=== PATIENT | female | born 1995 | race Caucasian/White ===

== ENCOUNTER → 2016-10-07 | Outpatient (CLI) | payer OTHER ==
--- NOTE | 2016-10-07 18:05 | US ---
EXAMINATION TYPE: US OB anatomy transabd DATE OF EXAM: 10/07/2016 COMPARISON: NONE HISTORY: Z36 Confirm Dates/ Check Anatomy; Occasional smoker; TECHNIQUE: Transabdominal (TA) EXAM MEASUREMENTS: GESTATIONAL AGE / DATING Physician Established: not established LMP: questionable 04/12/2016 per order, patient states unknown LMP First Scan today: Dates by Current Scan for: (20 weeks/6 days) EDC: 02/18/2017 SURVEY IUP: Single PLACENTA: Posterior PREVIA: No previa SAMINA: 14.2 cm Normal CERVICAL LENGTH (transabdominal: norm > 3.0cm): 3.9 cm BIOMETRY PRESENTATION: Breech LIE: Oblique BPD: 5.0 cm 21 weeks / 1 day HC: 19.0 cm 21 weeks / 1 day AC: 16.5 cm 21 weeks / 4 days FL: 3.5 cm 21 weeks / 0 days ESTIMATED WEIGHT IN GRAMS: 411.3 grams ESTIMATED WEIGHT IN LBS/OZ: 0 lbs. 15 oz. WEIGHT PERCENTAGE BASED ON ESTABLISHED DATE: NA HC/AC: 1.15 Normal FL/AC: 20.97 Normal HEART RATE: 126 bpm RHYTHM: Normal ANATOMY SEEN (within normal limits): * Lateral Vent (< 1 cm) 0.7 cm * Cisterna Magna (< 1.1 cm) 0.5 cm * Nuchal Fold (< 0.6 cm) 0.4 cm * Cerebellum (varies with age) 2.2 cm Choroid Plexus (bilateral) Midline Falx Cavus Septi Pellucidi Four Chamber Heart Outflow tracts: LVOT Stomach Situs Diaphragm Kidneys (bilateral) Bladder Cord Insert Three Vessel Cord Longitudinal Spine Transverse Spine Arms (bilateral) Legs (bilateral) ANATOMY NOT SEEN: RVOT Nose / Lips MATERNAL WALL MEASUREMENT: 6.2 cm from skin to anterior uterine wall (if exam limited due to body godoy bitus). Single, live, IUP,20 weeks/6 days), EDC: 02/18/2017, HR 126bpm IMPRESSION: The ultrasound gestational age is 20 weeks 6 days. I see no complicating process.
== END | disposition home or self-care (01) ==
LOC: RADUSWWP 16:32
PROVIDERS: ATTEND Obstetrics & Gynecology
DX: Z34.92 Encounter for supervision of normal pregnancy, unspecified, second trimester (principal); Z3A.20 20 weeks gestation of pregnancy
CPT/HCPCS: 76811

== ENCOUNTER → 2016-12-01 | Outpatient (CLI) | payer OTHER ==
--- NOTE | 2016-12-01 16:20 | US ---
EXAMINATION TYPE: US OB >= 14 wk fetus DATE OF EXAM: 12/01/2016 COMPARISON: US CLINICAL HISTORY: Z34.90 supervision of normal , uns For growth, pt has no complaints at thi s time TECHNIQUE: Transabdominal (TA) GESTATIONAL AGE / DATING Physician Established: (28 weeks/5 days) EDC: 02/18/2017 Dates by LMP: Unknown Dates by First Scan: (28 weeks/5 days) EDC: 02/18/2017 Dates by Current Scan: (29 weeks/4 days) EDC: 02/12/2017 SURVEY IUP: Single PLACENTA: Posterior PREVIA: No Previa SAMINA: 13.7 cm Normal CERVICAL LENGTH (transabdominal: norm > 3.0cm): 3.3 cm BIOMETRY PRESENTATION: Vertex BPD: 7.5 cm 30 weeks / 1 days HC: 27.6 cm 30 weeks / 2 days AC: 24.5 cm 28 weeks / 6 days FL: 5.4 cm 28 weeks / 5 days ESTIMATED WEIGHT IN GRAMS: 1306 grams ESTIMATED WEIGHT IN LBS/OZ: 2 lbs. 14 oz. WEIGHT PERCENTAGE BASED ON ESTABLISHED DATES: 45% HC/AC: 1.13 Normal FL/AC: 22 Normal HEART RATE: 142 bpm RHYTHM: Normal Single, viable IUP/ Growth parameters in 45th percentile/ No abnormality seen at this time IMPRESSION: 1. Single intrauterine gestation estimated at 29 weeks 4 days gestation based on current ultrasound m easurements. This would've a calculated EDC of 02/12/2017. Cardiac activity measures 142 bpm.
== END | disposition home or self-care (01) ==
LOC: RADUSWWP 13:02
PROVIDERS: ATTEND Obstetrics & Gynecology
DX: Z34.93 Encounter for supervision of normal pregnancy, unspecified, third trimester (principal); Z3A.29 29 weeks gestation of pregnancy
CPT/HCPCS: 76805

== ENCOUNTER 2017-06-01 17:03 | Inpatient (IN) | payer OTHER ==
[2017-06-01] MEDS ORDERED: ONDANSETRON 4 MG/2 ML VIAL IVP STA (17:45)
[2017-06-01] MEDS ORDERED: KETOROLAC 30 MG/ML 1 ML VIAL IVP STA (17:45)
[2017-06-01] MEDS ORDERED: SODIUM CHLORIDE 0.9% 1,000 ML IV STA (17:45)
[2017-06-01 18:29] LABS: Basophils % (A) 0 %; Eosinophils # (A) 0.2 k/uL (0-0.7); Eosinophils % (A) 2 %; HCT 41.1 % (34.0-46.0); HGB 13.6 gm/dL (11.4-16.0); Lymphocytes # (A) 1.5 k/uL (1.0-4.8); Lymphocytes % (A) 13 %; MCH 26.3 pg (25.0-35.0); MCV 79.6 fL (80.0-100.0); Mean Platelet Volume 6.6; Monocytes # (A) 0.4 k/uL (0-1.0); Monocytes % (A) 4 %; Neutrophils # (A) 9.1 k/uL (1.3-7.7); Neutrophils % (A) 79 %; Platelet Count 452 k/uL (150-450); RBC 5.16 m/uL (3.80-5.40); WBC 11.4 k/uL (4.0-11.0)
[2017-06-01 18:32] LABS: Appearance,Urine Cloudy (Clear); Bilirubin,Urine Negative (Negative); Blood,Urine Moderate (Negative); Color,Urine Yellow; Glucose,Urine (UA) Negative (Negative); Ketones,Urine Negative (Negative); Leukocyte Esterase,Urine Trace (Negative); Mucus,Urine Few /hpf; Nitrite,Urine Negative (Negative); Protein,Urine Trace (Negative); RBC,Urine 2 /hpf (0-5); Specific Gravity,Urine 1.019 (1.001-1.035); Squamous Epithelial Cell,Urine 25 /hpf (0-4); Urobilinogen,Urine <2.0 mg/dL (<2.0); WBC,Urine 5 /hpf (0-5)
[2017-06-01 18:42] LABS: ALT 35 U/L (9-52); AST 62 U/L (14-36); Albumin 4.5 g/dL (3.5-5.0); Alkaline Phosphatase 153 U/L (38-126); Amylase 63 U/L (30-110); Anion Gap 15 mmol/L; Blood Urea Nitrogen 10 mg/dL (7-17); Calcium 9.8 mg/dL (8.4-10.2); Carbon Dioxide 25 mmol/L (22-30); Chloride 104 mmol/L (98-107); Glucose 101 mg/dL (74-99); Lipase 63 U/L (23-300); Potassium 4.1 mmol/L (3.5-5.1); Sodium 144 mmol/L (137-145); Total Bilirubin 0.5 mg/dL (0.2-1.3); Total Protein 7.6 g/dL (6.3-8.2)
--- NOTE | 2017-06-01 19:37 | XR ---
EXAMINATION TYPE: XR KUB DATE OF EXAM: 06/01/2017 COMPARISON: NONE INDICATION: Abdomen pain right flank pain TECHNIQUE: Single view abdomen upright view FINDINGS: Minimal bowel gas is present. No free air is evident. No differential air-fluid levels are present. N o mass effect is evident. Psoas margins are normal. No organomegaly is present. No suspicious calcifications are identified. IMPRESSION: 1. Nonspecific abdomen.
--- NOTE | 2017-06-01 19:37 | ED ---
Abdominal Pain HPI <Lennox Malone - Last Filed: 06/01/17 21:19> - General Source: patient Mode of arrival: ambulatory Limitations: no limitations <Sola Crockett - Last Filed: 06/01/17 22:06> - General Chief Complaint: Abdominal Pain Stated Complaint: BACK AND RIB PAIN, NAUSEA Time Seen by Provider: 06/01/17 17:14 - History of Present Illness Initial Comments: 21-year-old female patient presents to the emergency department today for complaints of right upper quadrant abdominal pain radiates into her back. Patient states that this has been going on a mainly for the last month however last evening the pain became worse. Patient states that is been worsening consistently since 5:00 this morning. States that she has had multiple episodes of vomiting and is unable to keep down any food or fluids. She describes the pain as a sharp, achy pain that is intense. She denies any fevers or chills with this. Denies any diarrhea or constipation. Denies any hematuria, dysuria, urinary frequency, urinary urgency. She denies any chance of . States that she does take oral control. Patient denies any recent rash, shortness breath, chest pain, numbness, tingling, dizziness, weakness, headache, visual changes, or any other complaints. (Sola Crockett) - Related Data Home Medications Medication Instructions Recorded Confirmed Ibuprofen [Advil] 400 mg PO Q8HR PRN 06/01/17 06/01/17 [place]-Linyah 1 tab PO HS 06/01/17 06/01/17 Sertraline [Zoloft] 50 mg PO HS 06/01/17 06/01/17 Allergies Allergy/AdvReac Type Severity Reaction Status Date / Time No Known Allergies Allergy Verified 06/01/17 18:42 Review of Systems ROS Other: All systems not noted in ROS Statement are negative. <Lennox Malone - Last Filed: 06/01/17 21:19> ROS Other: All systems not noted in ROS Statement are negative. <Sola Crockett - Last Filed: 06/01/17 22:06> ROS Statement: Those systems with pertinent positive or pertinent negative responses have been documented in the HPI. Past Medical History Past Medical History: No Reported History History of Any Multi-Drug Resistant Organisms: None Reported Past Surgical History: Section, Tonsillectomy Past Psychological History: No Psychological Hx Reported Smoking Status: Current every day smoker Past Alcohol Use History: None Reported Past Drug Use History: Marijuana <Sola Crockett - Last Filed: 06/01/17 22:06> General Exam Limitations: no limitations General appearance: alert, in no apparent distress, other (This is a well- developed, obese adult female patient in no acute distress. Vital signs upon presentation are temperature 97.8F, pulse 96, respirations 20, blood pressure 140/89, pulse ox 97% on room air.) Eye exam: Present: normal appearance, PERRL, EOMI. Absent: scleral icterus, conjunctival injection, periorbital swelling ENT exam: Present: normal exam, normal oropharynx, mucous membranes moist Respiratory exam: Present: normal lung sounds bilaterally. Absent: respiratory distress, wheezes, rales, rhonchi, stridor Cardiovascular Exam: Present: regular rate, normal rhythm, normal heart sounds. Absent: systolic murmur, diastolic murmur, rubs, gallop, clicks GI/Abdominal exam: Present: soft, tenderness (Midepigastric and right upper quadrant abdominal tenderness), normal bowel sounds. Absent: distended, guarding, rebound, rigid Neurological exam: Present: alert, oriented X3, CN II-XII intact Psychiatric exam: Present: normal affect, normal mood Skin exam: Present: warm, dry, intact, normal color. Absent: rash <Sola Crockett - Last Filed: 06/01/17 22:06> Course <Lennox Malone - Last Filed: 06/01/17 21:19> <Sola Crockett - Last Filed: 06/01/17 22:06> Vital Signs 06/01/17 06/01/17 06/01/17 17:06 20:28 21:49 Temperature 97.8 F 98.2 F 97.6 F Pulse Rate 96 70 66 Respiratory 20 18 18 Rate Blood Pressure 148/89 128/71 110/65 O2 Sat by Pulse 97 100 98 Oximetry - Reevaluation(s) Reevaluation #1: 06/01/17 21:19 I did proceed a [id number] evaluation patient did discuss findings with her and her family. I also did discuss the case with Dr. Jimenez who does cover Dr. Mayra Jimenez patient will be admitted with surgical and GI consultation. There is evidence of gallstones second gallbladder wall and common bile duct dilatation. The patient also states that every member of her family dentist female that has had a child has had her gallbladder removed. (Lennox Malone) Medical Decision Making - Lab Data Result diagrams: 06/01/17 16:15 06/01/17 16:15 <Lennox Malone - Last Filed: 06/01/17 21:19> - Lab Data Result diagrams: 06/01/17 16:15 06/01/17 16:15 - Radiology Data Radiology results: report reviewed, image reviewed <Sola Crockett - Last Filed: 06/01/17 22:06> - Medical Decision Making 21-year-old female patient presents to the emergency department today for evaluation of right upper quadrant pain that radiates into her back. Physical examination did reveal some mild midepigastric and right upper quadrant tenderness. Labs reviewed and did show an elevated white blood cell count at 11.4. AST is 62, alk phos is 153. Ultrasound of the abdomen was obtained and did show a thickened gallbladder wall with a possible stone in the common bile duct. Also recommended to correlate for cholecystitis. Given patient's symptoms, labs, and ultrasound findings will admit for further evaluation by surgical services and gastroenterology. We will start zosyn. IV fluids and pain managment will be provided. Dr. Jimenez is accepting. (Sola Crockett) - Lab Data Lab Results 06/01/17 06/01/17 06/01/17 Range/Units 16:15 16:15 16:15 WBC 11.4 H (4.0-11.0) k/uL RBC 5.16 (3.80-5.40) m/uL Hgb 13.6 (11.4-16.0) gm/dL Hct 41.1 (34.0-46.0) % MCV 79.6 L (80.0-100.0) fL MCH 26.3 (25.0-35.0) pg MCHC 33.0 (31.0-37.0) g/dL RDW 14.0 (11.5-15.5) % Plt Count 452 H (150-450) k/uL Neutrophils % 79 % Lymphocytes % 13 % Monocytes % 4 % Eosinophils % 2 % Basophils % 0 % Neutrophils # 9.1 H (1.3-7.7) k/uL Lymphocytes # 1.5 (1.0-4.8) k/uL Monocytes # 0.4 (0-1.0) k/uL Eosinophils # 0.2 (0-0.7) k/uL Basophils # 0.0 (0-0.2) k/uL Sodium 144 (137-145) mmol/L Potassium 4.1 (3.5-5.1) mmol/L Chloride 104 (98-107) mmol/L Carbon Dioxide 25 (22-30) mmol/L Anion Gap 15 mmol/L BUN 10 (7-17) mg/dL Creatinine 0.72 (0.52-1.04) mg/dL Est GFR (CKD-EPI)AfAm >90 (>60 ml/min/1.73 sqM) Est GFR (CKD-EPI)NonAf >90 (>60 ml/min/1.73 sqM) Glucose 101 H (74-99) mg/dL Calcium 9.8 (8.4-10.2) mg/dL Total Bilirubin 0.5 (0.2-1.3) mg/dL AST 62 H (14-36) U/L ALT 35 (9-52) U/L Alkaline Phosphatase 153 H (38-126) U/L Total Protein 7.6 (6.3-8.2) g/dL Albumin 4.5 (3.5-5.0) g/dL Amylase 63 (30-110) U/L Lipase 63 (23-300) U/L Urine Color Urine Appearance (Clear) Urine pH (5.0-8.0) Ur Specific Matthews (1.001-1.035) Urine Protein (Negative) Urine Glucose (UA) (Negative) Urine Ketones (Negative) Urine Blood (Negative) Urine Nitrite (Negative) Urine Bilirubin (Negative) Urine Urobilinogen (<2.0) mg/dL Ur Leukocyte Esterase (Negative) Urine RBC (0-5) /hpf Urine WBC (0-5) /hpf Ur Squamous Epith Cells (0-4) /hpf Urine Mucus (None) /hpf Urine HCG, Qual Not Detected (Not Detectd) 06/01/17 Range/Units 16:15 WBC (4.0-11.0) k/uL RBC (3.80-5.40) m/uL Hgb (11.4-16.0) gm/dL Hct (34.0-46.0) % MCV (80.0-100.0) fL MCH (25.0-35.0) pg MCHC (31.0-37.0) g/dL RDW (11.5-15.5) % Plt Count (150-450) k/uL Neutrophils % % Lymphocytes % % Monocytes % % Eosinophils % % Basophils % % Neutrophils # (1.3-7.7) k/uL Lymphocytes # (1.0-4.8) k/uL Monocytes # (0-1.0) k/uL Eosinophils # (0-0.7) k/uL Basophils # (0-0.2) k/uL Sodium (137-145) mmol/L Potassium (3.5-5.1) mmol/L Chloride (98-107) mmol/L Carbon Dioxide (22-30) mmol/L Anion Gap mmol/L BUN (7-17) mg/dL Creatinine (0.52-1.04) mg/dL Est GFR (CKD-EPI)AfAm (>60 ml/min/1.73 sqM) Est GFR (CKD-EPI)NonAf (>60 ml/min/1.73 sqM) Glucose (74-99) mg/dL Calcium (8.4-10.2) mg/dL Total Bilirubin (0.2-1.3) mg/dL AST (14-36) U/L ALT (9-52) U/L Alkaline Phosphatase (38-126) U/L Total Protein (6.3-8.2) g/dL Albumin (3.5-5.0) g/dL Amylase (30-110) U/L Lipase (23-300) U/L Urine Color Yellow Urine Appearance Cloudy H (Clear) Urine pH 6.0 (5.0-8.0) Ur Specific Matthews 1.019 (1.001-1.035) Urine Protein Trace H (Negative) Urine Glucose (UA) Negative (Negative) Urine Ketones Negative (Negative) Urine Blood Moderate H (Negative) Urine Nitrite Negative (Negative) Urine Bilirubin Negative (Negative) Urine Urobilinogen <2.0 (<2.0) mg/dL Ur Leukocyte Esterase Trace H (Negative) Urine RBC 2 (0-5) /hpf Urine WBC 5 (0-5) /hpf Ur Squamous Epith Cells 25 H (0-4) /hpf Urine Mucus Few H (None) /hpf Urine HCG, Qual (Not Detectd) - Radiology Data Ultrasound of the abdomen was obtained, impression by Dr. Linares shows gallstone within the gallbladder. Correlate for cholecystitis. Common bile duct is dilated and appears to contain a stone within the duct. Two-view x-ray of the abdomen shows normal bowel gas is present. No free air is evident. No differential air fluid levels are present. No mass effect is evident. Psoas margins are normal. No organomegaly is present. No suspicious calcifications are identified. Impression by Dr. Linares shows nonspecific abdomen. (Sola Crockett) Disposition <Lennox Malone - Last Filed: 06/01/17 21:19> Is patient prescribed a controlled substance at d/c from ED?: No Decision to Admit Reason: Admit from EC Decision Date: 06/01/17 Decision Time: 21:34 <Sola Crockett - Last Filed: 06/01/17 22:06> Clinical Impression: Choledocholithiasis with acute cholecystitis Disposition: ADMITTED IP TO THIS [facility] Condition: Serious
--- NOTE | 2017-06-01 20:46 | US ---
EXAMINATION TYPE: US abdomen limited DATE OF EXAM: 06/01/2017 COMPARISON: NONE CLINICAL HISTORY: Pain. RUQ pain and vomiting. EXAM MEASUREMENTS: Liver Length: 20 cm Gallbladder Wall: 0.3 cm CBD: 0.9 cm Right Kidney: 13.0 x 3.8 x 4.9 cm Pancreas: Obscured by bowel gas Liver: Increased attenuation Gallbladder: Multiple stones visualized QUINN sign wall thickened. Evidence for sonographic Kauffman's sign: No CBD: Dilated and appears to be a stone visualized in duct. Right Kidney: No hydronephrosis or masses seen IMPRESSION: Gallstone within the gallbladder. Correlate for cholecystitis. The common bile duct is di lated and appears to contain a stone within the duct.
[2017-06-01] MEDS ORDERED: NALOXONE 0.4 MG/ML 1 ML VIAL IV PRN (21:12)
[2017-06-01] MEDS ORDERED: PIPERACILLIN-TAZOBACTAM 3.375 GM in DEXTROSE/WATER 1 50ML.BAG IVPB STA (21:37)
[2017-06-01] MEDS: SODIUM CHLORIDE 0.9% 1,000 ML IV SCH (22:16)
[2017-06-01] MEDS ORDERED: ALPRAZolam 0.25 MG TAB PO PRN (22:52)
--- NOTE | 2017-06-01 23:46 | HP ---
HISTORY AND PHYSICAL DATE OF SERVICE: 06/01/2017 CHIEF COMPLAINT: Abdominal pain. HISTORY OF PRESENT ILLNESS: This 21-year-old woman with a past medical history of section, tonsillectomy, being followed by Dr. Enid Jeffers in the outpatient setting, complaining of abdominal pain for the last several days. The pain is in the right upper quadrant. Abdominal pain is radiating to the back and the pain got worse last night. The patient came to [facility] and admitted for further evaluation and treatment. In the ER, an abdominal ultrasound was done which showed evidence of gallstones and cholecystitis and patient admitted for further evaluation and treatment. There is no history of fever, rigors. No history of headache, loss of consciousness. White count is also elevated. UA also noted. PAST MEDICAL HISTORY: History of section, tonsillectomy. MEDICATIONS PRIOR TO ADMISSION: Include: 1. Dodge-Linyah. 2. Zoloft 50 mg q.h.s. 3. Advil 400 mg q.89h p.r.n. ALLERGIES: None. SOCIAL HISTORY: History of smoking, THC. FAMILY HISTORY: No history of heart disease or strokes in the family. REVIEW OF SYSTEMS: ENT: No diminished hearing, diminished vision. CARDIOVASCULAR: No angina, palpitations. RESPIRATORY: No cough or hemoptysis. GI: As mentioned earlier. : No dysuria. NERVOUS: No numbness or weakness. ALLERGY/IMMUNOLOGY: No asthma or hay fever. MUSCULOSKELETAL: As mentioned earlier. HEMATOLOGY/ONCOLOGY: No history of anemia. ENDOCRINE: No history of diabetes, hypothyroidism. CONSTITUTIONAL: As mentioned earlier. DERMATOLOGY: Negative. RHEUMATOLOGY: Negative. PSYCHIATRY: As mentioned earlier. PHYSICAL EXAMINATION: Alert oriented x3. Pulse is 66, blood pressure 120/64, respirations 18, temperature 98.6, pulse ox 98% on room air. HEENT: Conjunctivae normal. NECK: No jugular venous distention. CARDIOVASCULAR: S1, S2 muffled. RESPIRATORY: Breath sounds diminished in the bases. No rhonchi. No crackles. ABDOMEN: Soft. Mild diffuse tenderness in the right upper quadrant and otherwise abdomen obese and no mass palpable. LEGS: No edema. No swelling. NERVOUS SYSTEM: Higher functions as mentioned earlier. Moves all 4 limbs. No focal motor or sensory deficits. LYMPHATIC: No lymphadenopathy in neck or axillae. SKIN: No ulcer, rash or bleeding. LABS: WBC 7.4, hemoglobin 13.6. Sodium 142, potassium 4.1. UA noted. ASSESSMENT: 1. Right upper quadrant abdominal pain, possible acute cholecystitis and cholelithiasis. 2. Increased WBC. 3. Obesity. 4. Increased AST. 5. Increase alkaline phosphatase. RECOMMENDATIONS AND DISCUSSION: In this 21-year-old woman who presented with multiple complex medical issues, will monitor the patient closely, continue the current medical management and symptomatic treatment. Will obtain neck surgery and gastroenterology evaluations. Otherwise, I would also recommend DVT prophylaxis, symptomatic treatment. Antibiotics also have been initiated. Will follow the patient closely. Would also recommend proton pump inhibitors. Prognosis guarded because of multiple complex medical issues. Further further recommendations to follow. MMODL / IJN: [id number] /
[2017-06-02] MEDS: MORPHINE SULFATE 4MG/4ML SYRG IVP SCH ×4 (00:05→10:35)
[2017-06-02] MEDS: HEPARIN SODIUM,PORCINE 5,000 UNIT/ML 1 ML VIAL SQ SCH ×3 (01:24→20:22)
[2017-06-02] MEDS: ONDANSETRON 4 MG/2 ML VIAL IVP PRN ×2 (06:54→14:13)
[2017-06-02 07:00] LABS: Basophils % (A) 0 %; Eosinophils # (A) 0.3 k/uL (0-0.7); Eosinophils % (A) 2 %; HCT 38.8 % (34.0-46.0); HGB 12.1 gm/dL (11.4-16.0); Lymphocytes # (A) 2.9 k/uL (1.0-4.8); Lymphocytes % (A) 26 %; MCH 25.4 pg (25.0-35.0); MCHC 31.3 g/dL (31.0-37.0); Mean Platelet Volume 7.2; Monocytes # (A) 0.5 k/uL (0-1.0); Monocytes % (A) 5 %; Neutrophils # (A) 7.2 k/uL (1.3-7.7); Neutrophils % (A) 65 %; Platelet Count 390 k/uL (150-450); RBC 4.79 m/uL (3.80-5.40); RDW 14.6 % (11.5-15.5)
[2017-06-02 07:42] LABS: ALT 53 U/L (9-52); AST 76 U/L (14-36); Albumin 4.1 g/dL (3.5-5.0); Alkaline Phosphatase 152 U/L (38-126); Anion Gap 14 mmol/L; Blood Urea Nitrogen 10 mg/dL (7-17); Calcium 9.2 mg/dL (8.4-10.2); Carbon Dioxide 22 mmol/L (22-30); Chloride 106 mmol/L (98-107); Glucose 89 mg/dL (74-99); Potassium 3.7 mmol/L (3.5-5.1); Sodium 142 mmol/L (137-145); Total Bilirubin 0.8 mg/dL (0.2-1.3); Total Protein 6.9 g/dL (6.3-8.2)
[2017-06-02] MEDS: NICOTINE 14MG/24HR PATCH TRANSDERM SCH (09:16)
[2017-06-02] MEDS: PANTOPRAZOLE 40 MG/10 ML VIAL IVP SCH (09:18)
[2017-06-02] MEDS: PIPERACILLIN-TAZOBACTAM 3.375 GM in DEXTROSE/WATER 1 50ML.BAG IVPB SCH ×3 (09:18→23:26)
--- NOTE | 2017-06-02 10:07 | P.GSCN ---
History of Present Illness Consult date: 06/02/17 Reason for Consult: Right upper quadrant pain History of present illness: A 21-year-old female presented on the day of admission to the emergency room with a chief complaint of developing right upper quadrant abdominal pain radiating into the back. Patient stated that she has had intermittent episodes for the last month. stated it normally resolved on its own. Stated the pain this time symptomatic. felt nauseated did vomit. not able to keep any fluids down. Patient stated the pain was a sharp achy stabbing pain that was very intense. Patient states a positive family history of gallbladder disease. Past surgical history of in February 2017 tonsillectomy no past medical history ultrasound obtained in the emergency room showed thickening gallbladder possible stone in the common bile duct. Dilated common bile duct appeared to have a stone in the duct Correlate for possible cholecystitis. Review of Systems Essentially unremarkable except as mentioned in the present illness Past Medical History Past Medical History: No Reported History History of Any Multi-Drug Resistant Organisms: None Reported Past Surgical History: Section, Tonsillectomy Past Anesthesia/Blood Transfusion Reactions: No Reported Reaction Past Psychological History: Anxiety, Depression, PTSD Additional Psychological History / Comment(s): Marijuana helps with anxiety and depression. Did try Zoloft for a period of time, but did not agree with patient. Smoking Status: Current some day smoker Past Alcohol Use History: None Reported Past Drug Use History: Marijuana - Past Family History Mother Family Medical History: Hypertension Additional Family Medical History / Comment(s): Gall bladder surgery Sister(s) Additional Family Medical History / Comment(s): Gall bladder surgery Father History Unknown: Yes Son(s) Family Medical History: No Reported History Medications and Allergies Home Medications Medication Instructions Recorded Confirmed Type Ibuprofen [Advil] 400 mg PO Q8HR PRN 06/01/17 06/01/17 History [place]nn-Linyah 1 tab PO HS 06/01/17 06/01/17 History Sertraline [Zoloft] 50 mg PO HS 06/01/17 06/01/17 History Allergies Allergy/AdvReac Type Severity Reaction Status Date / Time No Known Allergies Allergy Verified 06/01/17 18:42 Surgical - Exam Vital Signs Temp Pulse Resp BP Pulse Ox 97.8 F 96 20 148/89 97 06/01/17 17:06 06/01/17 17:06 06/01/17 17:06 06/01/17 17:06 06/01/17 17:06 GENERAL APPEARANCE: 21-year-old female patient sitting up in bed alert, oriented 3, in no acute distress. VITAL SIGNS: Reviewed HEENT: Head is normocephalic and atraumatic. Pupils are equal and reactive. The nares are patent. Oropharynx is clear without lesions. NECK: Supple without lymphadenopathy. Traches midline. HEART: S1, S2. Regular rate and rhythm. Denying chest pain no murmur noted LUNGS: No crackles or wheezes are heard. Adequate air movement bilaterally on room air no cough ABDOMEN: Soft, obese mid epigastric right upper quadrant abdominal tenderness nondistended with good bowel sounds. No peritoneal signs. No palpable organomegaly or masses. Reports a nausea sensation no active emesis EXTREMITIES: Normal skin color and turgor. No cyanosis, rash, ulceration, clubbing or edema. Radial pedal pulses are 2/4 bilaterally. NEUROLOGICAL: No focal deficits. Strength and sensation are grossly intact. Results - Labs 06/02/17 06:36 06/02/17 06:36 Abnormal Lab Results - Last 24 Hours (Table) 06/01/17 06/01/17 06/01/17 Range/Units 16:15 16:15 16:15 WBC 11.4 H (4.0-11.0) k/uL MCV 79.6 L (80.0-100.0) fL Plt Count 452 H (150-450) k/uL Neutrophils # 9.1 H (1.3-7.7) k/uL Glucose 101 H (74-99) mg/dL AST 62 H (14-36) U/L ALT (9-52) U/L Alkaline Phosphatase 153 H (38-126) U/L Urine Appearance Cloudy H (Clear) Urine Protein Trace H (Negative) Urine Blood Moderate H (Negative) Ur Leukocyte Esterase Trace H (Negative) Ur Squamous Epith Cells 25 H (0-4) /hpf Urine Mucus Few H (None) /hpf 06/02/17 Range/Units 06:36 WBC (4.0-11.0) k/uL MCV (80.0-100.0) fL Plt Count (150-450) k/uL Neutrophils # (1.3-7.7) k/uL Glucose (74-99) mg/dL AST 76 H (14-36) U/L ALT 53 H (9-52) U/L Alkaline Phosphatase 152 H (38-126) U/L Urine Appearance (Clear) Urine Protein (Negative) Urine Blood (Negative) Ur Leukocyte Esterase (Negative) Ur Squamous Epith Cells (0-4) /hpf Urine Mucus (None) /hpf Diabetes panel 06/01/17 06/02/17 Range/Units 16:15 06:36 Sodium 144 142 (137-145) mmol/L Potassium 4.1 3.7 (3.5-5.1) mmol/L Chloride 104 106 (98-107) mmol/L Carbon Dioxide 25 22 (22-30) mmol/L BUN 10 10 (7-17) mg/dL Creatinine 0.72 0.81 (0.52-1.04) mg/dL Glucose 101 H 89 (74-99) mg/dL Calcium 9.8 9.2 (8.4-10.2) mg/dL AST 62 H 76 H (14-36) U/L ALT 35 53 H (9-52) U/L Alkaline Phosphatase 153 H 152 H (38-126) U/L Total Protein 7.6 6.9 (6.3-8.2) g/dL Albumin 4.5 4.1 (3.5-5.0) g/dL Calcium panel 06/01/17 06/02/17 Range/Units 16:15 06:36 Calcium 9.8 9.2 (8.4-10.2) mg/dL Albumin 4.5 4.1 (3.5-5.0) g/dL Pituitary panel 06/01/17 06/02/17 Range/Units 16:15 06:36 Sodium 144 142 (137-145) mmol/L Potassium 4.1 3.7 (3.5-5.1) mmol/L Chloride 104 106 (98-107) mmol/L Carbon Dioxide 25 22 (22-30) mmol/L BUN 10 10 (7-17) mg/dL Creatinine 0.72 0.81 (0.52-1.04) mg/dL Glucose 101 H 89 (74-99) mg/dL Calcium 9.8 9.2 (8.4-10.2) mg/dL Adrenal panel 04/19/18 04/20/18 Range/Units 16:15 06:36 Sodium 144 142 (137-145) mmol/L Potassium 4.1 3.7 (3.5-5.1) mmol/L Chloride 104 106 (98-107) mmol/L Carbon Dioxide 25 22 (22-30) mmol/L BUN 10 10 (7-17) mg/dL Creatinine 0.72 0.81 (0.52-1.04) mg/dL Glucose 101 H 89 (74-99) mg/dL Calcium 9.8 9.2 (8.4-10.2) mg/dL Total Bilirubin 0.5 0.8 (0.2-1.3) mg/dL AST 62 H 76 H (14-36) U/L ALT 35 53 H (9-52) U/L Alkaline Phosphatase 153 H 152 H (38-126) U/L Total Protein 7.6 6.9 (6.3-8.2) g/dL Albumin 4.5 4.1 (3.5-5.0) g/dL Assessment and Plan Assessment: Impression Present on admission right upper quadrant abdominal pain suspect due to acute cholelithiasis Morbid obesity BMI 52 A recent February 2017 Ultrasound of the gallbladder shows gallbladder wall thickening, common bile duct dilated with a stone within the duct Present on admission acute right upper quadrant abdominal pain suspect due to acute cholecystitis with cholelithiasis Current every day smoker Leukocytosis present on admission suspect reactive Present on admission increased alkaline phosphate, AST, ALT with a normal lipase 63 Plan Await GI eval possible ERCP for the cholelithiasis Continue IV Zosyn as ordered Keep nothing by mouth Pain control DVT and GI prophylaxis Patient will need a cholecystectomy timing to be determined after the ERCP Possible discharge after ERCP with the cholecystectomy to be arranged outpatient early next week with Dr. walls Repeat labs after the ERCP Surgical consultation note dictated for Dr. walls The above impression and plan of care have been discussed and directed by signing physician. Danielle Stapleton nurse practitioner acting as scribe for signing physician.
[2017-06-02] MEDS ORDERED: MORPHINE SULF 5MG/10ML VL IVP STA (10:13)
[2017-06-02] MEDS: SODIUM CHLORIDE 0.9% 1,000 ML IV SCH ×2 (10:37→20:19)
--- NOTE | 2017-06-02 13:47 | PN ---
PROGRESS NOTE DATE OF SERVICE: 06/02/2017 This 21-year-old woman is admitted with abdominal pain and possibly cholelithiasis and cholecystitis. ERCP is being planned at this time. Surgery has seen the patient and planning outpatient cholecystectomy. No chest pain. No palpitations. No fever. EXAM: Alert and oriented x3. Pulse 80, blood pressure 120/81, respiration 14, temperature 98.2, pulse ox 97% on room air. HEENT: Conjunctivae normal. NECK: No jugular venous distention. CARDIOVASCULAR: S1, S2. RESPIRATORY: Breath sounds diminished in the bases. No rhonchi, no crackles. ABDOMEN: Soft. Mild diffuse discomfort on palpation. No guarding. No rigidity. No mass palpable. LEGS: No edema. No swelling. NERVOUS SYSTEM: No focal deficits. LABS: WBC 7, hemoglobin 12.1. AST 76 and ALT is 53. ASSESSMENT: 1. Right upper quadrant abdominal pain, possibly acute cholecystitis and cholelithiasis. 2. Increased WBC. 3. Increased AST, ALT, alkaline phosphatase, rule out choledocholithiasis. 4. Increased WBC. 5. Obesity. RECOMMENDATIONS AND DISCUSSION: Continue current management and symptomatic treatment. Otherwise ERCP and outpatient lap cecile. Guarded prognosis. Further recommendations to follow. MMODL / IJN: [id number] /
[2017-06-02] MEDS: MORPHINE SULFATE 4 MG/0.8 ML SYRINGE (INJ) IVP SCH ×3 (14:13→23:26)
[2017-06-02] MEDS: SERTRALINE 50 MG TAB PO SCH (20:22)
[2017-06-03] MEDS: MORPHINE SULFATE 4 MG/0.8 ML SYRINGE (INJ) IVP SCH ×2 (02:19→06:18)
[2017-06-03] MEDS: SODIUM CHLORIDE 0.9% 1,000 ML IV SCH ×3 (06:18→18:50)
[2017-06-03] MEDS ORDERED: INDOMETHACIN 50MG SUPPOSITORY RECTAL ONE (07:00)
[2017-06-03 07:16] LABS: Basophils % (A) 1 %; Eosinophils # (A) 0.2 k/uL (0-0.7); Eosinophils % (A) 3 %; HCT 38.6 % (34.0-46.0); Lymphocytes # (A) 2.2 k/uL (1.0-4.8); Lymphocytes % (A) 30 %; MCH 25.6 pg (25.0-35.0); MCHC 31.2 g/dL (31.0-37.0); MCV 81.9 fL (80.0-100.0); Mean Platelet Volume 6.8; Monocytes # (A) 0.5 k/uL (0-1.0); Monocytes % (A) 6 %; Neutrophils # (A) 4.3 k/uL (1.3-7.7); Neutrophils % (A) 58 %; Platelet Count 397 k/uL (150-450); RBC 4.71 m/uL (3.80-5.40); RDW 14.2 % (11.5-15.5); WBC 7.5 k/uL (4.0-11.0)
[2017-06-03 07:29] LABS: Chloride 104 mmol/L (98-107); Sodium 143 mmol/L (137-145); Total Protein 6.7 g/dL (6.3-8.2)
[2017-06-03 07:43] LABS: ALT 155 U/L (9-52); AST 176 U/L (14-36); Albumin 3.8 g/dL (3.5-5.0); Alkaline Phosphatase 225 U/L (38-126); Anion Gap 15 mmol/L; Blood Urea Nitrogen 5 mg/dL (7-17); Calcium 9.3 mg/dL (8.4-10.2); Carbon Dioxide 24 mmol/L (22-30); Glucose 101 mg/dL (74-99); Potassium 3.6 mmol/L (3.5-5.1); Total Bilirubin 2.6 mg/dL (0.2-1.3)
[2017-06-03] MEDS ORDERED: MORPHINE SULFATE 4 MG/0.8 ML SYRINGE (INJ) IVP PRN (08:17)
[2017-06-03] MEDS ORDERED: IV FLUID CONTINUATION 800 ML IV ONE (08:21)
--- NOTE | 2017-06-03 08:27 | P.CONS ---
History of Present Illness - Reason for Consult Consult date: 06/02/17 Common bile duct stone for possible ERCP. - History of Present Illness The patient is a 21-year-old female who presented to the emergency room with right upper quadrant abdominal pain radiating into the back. Patient stated that she has had intermittent episodes for the last month. stated it normally resolved on its own. Stated the pain this time symptomatic. felt nauseated did vomit. Was not able to keep any fluids down. Patient stated the pain was a sharp achy stabbing pain that was very intense. Patient states a positive family history of gallbladder disease. Ultrasound obtained in the emergency room showed cholelithiasis with thickening of the gallbladder wall and dilated common bile duct with a stone in the duct, correlate for possible cholecystitis. Patient has a 3-month-old baby and she believes she had issues during her on and off with abdominal pains. Review of Systems 14 point review of systems is otherwise not revealing. Past Medical History Past Medical History: No Reported History History of Any Multi-Drug Resistant Organisms: None Reported Past Surgical History: Section, Tonsillectomy Past Anesthesia/Blood Transfusion Reactions: No Reported Reaction Past Psychological History: Anxiety, Depression, PTSD Additional Psychological History / Comment(s): Marijuana helps with anxiety and depression. Did try Zoloft for a period of time, but did not agree with patient. Smoking Status: Current some day smoker Past Alcohol Use History: None Reported Past Drug Use History: Marijuana - Past Family History Mother Family Medical History: Hypertension Additional Family Medical History / Comment(s): Gall bladder surgery Sister(s) Additional Family Medical History / Comment(s): Gall bladder surgery Father History Unknown: Yes Son(s) Family Medical History: No Reported History Medications and Allergies Home Medications Medication Instructions Recorded Confirmed Type Ibuprofen [Advil] 400 mg PO Q8HR PRN 06/01/17 06/01/17 History [place] 1 tab PO HS 06/01/17 06/01/17 History Sertraline [Zoloft] 50 mg PO HS 06/01/17 06/01/17 History Allergies Allergy/AdvReac Type Severity Reaction Status Date / Time No Known Allergies Allergy Verified 06/01/17 18:42 Physical Exam Vitals: Vital Signs Temp Pulse Pulse Resp BP BP Pulse Ox 06/02/17 16:19 97.9 F 75 20 126/79 95 06/02/17 09:15 97.5 F L 71 18 123/79 95 06/02/17 07:00 98.3 F 80 14 123/81 97 06/02/17 01:29 97.2 F L 72 16 112/71 99 06/01/17 22:27 98.0 F 69 16 108/62 98 06/01/17 21:49 97.6 F 66 18 110/65 98 06/01/17 20:28 98.2 F 70 18 128/71 100 Intake and Output 06/02/17 06/02/17 06/02/17 06:59 14:59 22:59 Intake Total 371 Balance 371 Intake: Intake, IV Titration 371 Amount Piperacillin-Tazobactam 3 50 .375 gm In Dextrose/Water 1 50ml.bag @ 12.5 mls/hr IVPB ONCE STA Rx#: [id number] Sodium Chloride 0.9% 1, 321 000 ml @ 100 mls/hr IV . Q10H [facility] Rx#:[id number] Other: Voiding Method Toilet # Voids 1 1 # Bowel Movements 1 General: Appears stated age in no acute distress Head and neck: Normocephalic and atraumatic, conjunctivae pink and sclerae are not icteric, mucosal membranes moist and pink. No masses and irregular tracheal shifts Lungs: Clear to auscultation with no dullness to percussion Heart: Regular with normal bowel sounds, murmurs, gallops or friction rubs Abdomen: Soft no masses or organomegalies or tenderness. Bowel sounds positive Extremities: No clubbing cyanosis or edema Neurologic: Alert and oriented 3, cranial nerves grossly intact, no gross sensory or motor abnormalities Results CBC & Chem 7: 06/03/17 06:52 06/03/17 06:52 Labs: Abnormal Lab Results - Last 24 Hours (Table) 06/02/17 Range/Units 06:36 AST 76 H (14-36) U/L ALT 53 H (9-52) U/L Alkaline Phosphatase 152 H (38-126) U/L Assessment and Plan Assessment: Cholelithiasis and suspected choledocholithiasis and cholecystitis. Plan: Agree with your current management. Patient is already on antibiotics. Will proceed with ERCP in a.m.
[2017-06-03] MEDS ORDERED: LACTATED RINGERS 1,000 ML IV ONE (09:24)
[2017-06-03] MEDS ORDERED: IOPAMIDOL-370 50ML BTL MISCELLANE ONE (09:26)
--- NOTE | 2017-06-03 09:47 | P.PCN ---
Date of Procedure: 06/03/17 Procedure(s) Performed: Procedure: Endoscopic retrograde cholangiopancreatography ERCP with sphincterotomy with attempt at extraction a common bile duct stone with subsequent placement of an [place] 5 cm 7-Green[place] biliary stent. Preoperative diagnosis: Cholelithiasis and choledocholithiasis. Postoperative diagnosis: 1. Normal pancreatic duct. 2. Dilated common bile duct with a filling defect distally. 3. Successful sphincterotomy but inability to extract the common bile duct stone using the 11.5 mm balloon catheter. 4. A 7-Green[place] 5 cm [place] biliary stent was placed. Preparation and sedation: Was provided by anesthesia. Brief clinical history: The patient is a 21-year-old female who presented to the emergency room with right upper quadrant abdominal pain radiating into the back. Patient stated that she has had intermittent episodes for the last month. stated it normally resolved on its own. Stated the pain this time symptomatic. felt nauseated did vomit. Was not able to keep any fluids down. Patient stated the pain was a sharp achy stabbing pain that was very intense. Patient states a positive family history of gallbladder disease. Ultrasound obtained in the emergency room showed cholelithiasis with thickening of the gallbladder wall and dilated common bile duct with a stone in the duct, correlate for possible cholecystitis. Her liver profile this morning showed AST 176 ALT 155 alkaline phosphatase 255 and total bilirubin 2.6. Other details are summarized in the history and physical and dictated consultations and progress notes. This evaluation is to attempt removal of the common bile duct stone. Procedure: With the patient in the prone position and after informed consent and adequate sedation, I passed the Olympus video duodenoscope down the esophagus into the stomach then passed it through the pylorus into the duodenum and brought the papilla into view. Initial cannulation resulted in partial opacification of the common bile duct and a distal commom bile duct filling defect was noted consistent with common bile duct stone. Subsequently, all injections kept going into the pancreatic duct which appeared normal. At that point, I attempted gaining access into the common bile duct using the guidewire and that was not successful. Subsequently, I was able to selectively cannulate the common bile duct and obtain a good cholangiogram using the regular cannulating catheter and that demonstrated dilated common bile duct and distal filling defect. The filling defect measured around 10 mm in greatest dimension. I proceeded to exchange the catheter for a sphincterotome over a guidewire and performed adequate sphincterotomy. However, I was not able to extract the common bile duct stone using the 11.5 mm balloon catheter. I then proceeded to place an Montez[place] 7-Green[place] 5 centimeter biliary stent or a guidewire and concluded the examination without removing the common bile duct stone at this time. The patient tolerated the procedure well and did not have any immediate complications. Plan: The findings were shared with the patient. Will allow clear liquids today. I will discuss with surgery optimal approach moving forward and I would discuss with you.
[2017-06-03] MEDS: HEPARIN SODIUM,PORCINE 5,000 UNIT/ML 1 ML VIAL SQ SCH ×2 (09:49→20:25)
[2017-06-03] MEDS: NICOTINE 14MG/24HR PATCH TRANSDERM SCH ×2 (09:52→09:53)
[2017-06-03] MEDS: PANTOPRAZOLE 40 MG/10 ML VIAL IVP SCH (09:52)
[2017-06-03] MEDS: PIPERACILLIN-TAZOBACTAM 3.375 GM in DEXTROSE/WATER 1 50ML.BAG IVPB SCH ×2 (09:52→17:57)
--- NOTE | 2017-06-03 10:25 | FL ---
FLUOROSCOPY 5.18 seconds of fluoroscopy time were utilized during ERCP with stent placement. 4 images document th e procedure.
--- NOTE | 2017-06-03 11:56 | P.PN ---
Subjective Progress Note Date: 06/03/17 Patient is a 21-year-old female who presented with choledocholithiasis . She underwent an ERCP today at which time an approximately 10 mm stone was identified. The stone was unable to be extracted however sphincterotomy was performed. Additionally a [place] 5 cm 7-[place] biliary stent was placed. The patient is post procedure at this time and resting comfortably. Laboratory studies at 6:45 this a.m. revealed AST 176, ALT 155, alk phos 225, and bilirubin 2.6. Objective - Vital Signs Vital signs: Vital Signs Temp 97.0 F L 06/03/17 10:11 Pulse 83 06/03/17 10:56 Resp 18 06/03/17 10:56 BP 123/74 06/03/17 10:56 Pulse Ox 97 06/03/17 10:56 Intake & Output 06/02/17 06/03/17 06/03/17 18:59 06:59 18:59 Intake Total 480 500 Balance 480 500 Intake: IV 500 Oral 480 Other: Voiding Method Toilet # Voids 1 1 # Bowel Movements 1 - Constitutional General appearance: Present: obese - Respiratory Respiratory: bilateral: CTA - Cardiovascular Rhythm: regular Heart sounds: normal: S1, S2 - Gastrointestinal General gastrointestinal: Present: decreased bowel sounds, soft - Psychiatric Psychiatric: Present: A&O x's 3, appropriate affect - Labs CBC & Chem 7: 06/03/17 06:52 06/03/17 06:52 Labs: Abnormal Lab Results - Last 24 Hours (Table) 06/03/17 Range/Units 06:52 BUN 5 L (7-17) mg/dL Glucose 101 H (74-99) mg/dL Total Bilirubin 2.6 H (0.2-1.3) mg/dL AST 176 H (14-36) U/L ALT 155 H (9-52) U/L Alkaline Phosphatase 225 H (38-126) U/L Assessment and Plan Assessment: Impression/plan: 1. 21-year-old female with choledocholithiasis 2. Attempted stone removal via ERCP, sphincterotomy performed and stent placed Plan: 1. Clear liquid diet if okay with Dr. Lacy 2. Repeat liver function studies in a.m.
--- NOTE | 2017-06-03 17:03 | PN ---
PROGRESS NOTE DATE OF SERVICE: 06/03/2017 This 21-year-old woman was admitted with right upper quadrant abdominal pain had features of acute colitis, also had a choledocholithiasis. The ERCP showed possible stone and the patient underwent sphincterotomy and as well as stent placement. No chest pain. No palpitations. No fever. Complains of right upper quadrant and discomfort. EXAM: Alert and oriented x3. Pulse 92, blood pressure 131/82, respiration 18, temperature 97 degrees, pulse ox 98% on room air. HEENT: Conjunctivae normal. NECK: No jugular venous distention. CARDIOVASCULAR: S1, S2. RESPIRATORY: Breath sounds diminished in the bases. No rhonchi, no crackles. ABDOMEN: Soft. Mild diffuse discomfort on palpation. LEGS: No edema. NERVOUS SYSTEM: No focal deficits. LABS: WBC 7.2, hemoglobin is 12. Bilirubin is 2.6 and AST 176, ALT is 155. ASSESSMENT: 1. Right upper quadrant abdominal pain with possible cholecystitis, cholelithiasis and choledocholithiasis. 2. Increased WBC. 3. Status post ERCP, sphincterotomy and as well as biliary stent placement. 4. Increased AST and ALT, alkaline phosphatase and bilirubin, possibly secondary to choledocholithiasis. 5. Increased WBC. 6. Obesity. RECOMMENDATIONS AND DISCUSSION: I recommend to continue current management and symptomatic treatment. Will repeat labs in the morning. Closely follow with Surgery and as well as Gastroenterology. Repeat labs in the morning. Symptomatic treatment. Further recommendations to follow. MMODL / IJN: [id number] /
[2017-06-03] MEDS: SERTRALINE 50 MG TAB PO SCH (20:26)
[2017-06-03] MEDS: MORPHINE ORAL SOLN 10 MG/5 ML CUP PO PRN (21:16)
[2017-06-04] MEDS: PIPERACILLIN-TAZOBACTAM 3.375 GM in DEXTROSE/WATER 1 50ML.BAG IVPB SCH ×4 (01:04→23:51)
[2017-06-04] MEDS: MORPHINE ORAL SOLN 10 MG/5 ML CUP PO PRN ×2 (01:47→08:37)
[2017-06-04] MEDS: ONDANSETRON 4 MG/2 ML VIAL IVP PRN (01:47)
[2017-06-04 07:34] LABS: Albumin 3.8 g/dL (3.5-5.0); Bilirubin, Delta 0.6 mg/dL (0.0-0.2); Total Bilirubin 0.6 mg/dL (0.2-1.3); Total Protein 6.5 g/dL (6.3-8.2)
[2017-06-04] MEDS: PANTOPRAZOLE 40 MG/10 ML VIAL IVP SCH (08:37)
[2017-06-04] MEDS: SODIUM CHLORIDE 0.9% 1,000 ML IV SCH (08:37)
[2017-06-04] MEDS: NICOTINE 14MG/24HR PATCH TRANSDERM SCH (08:37)
[2017-06-04] MEDS: HEPARIN SODIUM,PORCINE 5,000 UNIT/ML 1 ML VIAL SQ SCH ×2 (08:37→20:51)
--- NOTE | 2017-06-04 11:41 | P.PN ---
Subjective Progress Note Date: 06/04/17 Patient is a 21-year-old obese white female status post ERCP for choledocholithiasis. Postprocedure the patient was noted to have an elevated lipase and amylase, the amylase is 4345, and the lipase is 16,390. The patient has mild abdominal discomfort. Objective - Vital Signs Vital signs: Vital Signs Temp 97.9 F 06/04/17 07:41 Pulse 67 06/04/17 07:41 Resp 18 06/04/17 07:41 BP 131/85 06/04/17 07:41 Pulse Ox 97 06/04/17 07:41 Intake & Output 06/03/17 06/04/17 06/04/17 18:59 06:59 18:59 Intake Total 500 940 180 Balance 500 940 180 Intake: IV 500 Oral 940 180 Other: # Voids 3 # [place] 1 - Constitutional General appearance: Present: morbidly obese - Respiratory Details: decreased breath sounds at bases - Cardiovascular Rhythm: regular Heart sounds: normal: S1, S2 - Gastrointestinal Gastrointestinal Comment(s): Mild tenderness midepigastric area General gastrointestinal: Present: decreased bowel sounds, soft - Psychiatric Psychiatric: Present: A&O x's 3, appropriate affect, intact judgment & insight - Labs CBC & Chem 7: 06/03/17 06:52 06/03/17 06:52 Labs: Abnormal Lab Results - Last 24 Hours (Table) 06/04/17 Range/Units 06:21 Delta Bilirubin 0.6 H (0.0-0.2) mg/dL AST 82 H (14-36) U/L ALT 130 H (9-52) U/L Alkaline Phosphatase 195 H (38-126) U/L Amylase 4345 H* (30-110) U/L Lipase 32460 H (23-300) U/L Assessment and Plan Assessment: Impression/plan: 1. 21-year-old female with choledocholithiasis 2. Attempted stone removal via ERCP, sphincterotomy performed and stent placed 3. Post ERCP pancreatitis Plan: 1. Clear liquid diet if okay with Dr. Lacy 2. Repeat liver function studies in a.m.
[2017-06-04] MEDS ORDERED: MORPHINE ORAL SOLN 10 MG/5 ML CUP PO PRN ×2 (11:57→12:00)
[2017-06-04] MEDS: MORPHINE SULFATE 4 MG/0.8 ML SYRINGE (INJ) IVP PRN ×3 (13:09→20:56)
--- NOTE | 2017-06-04 18:58 | PN ---
PROGRESS NOTE DATE OF SERVICE: 06/04/2017. INTERVAL HISTORY: This 21-year-old woman who was admitted with right upper quadrant also had features of choledocholithiasis. The patient underwent ERCP and attempted stone extraction as well as a stent placement. Today the patient complaining of abdominal pain and as well as some back pain also. Amylase and lipase is elevated indicating post ERCP pancreatitis. No chest pain. No palpitations. No fever. EXAM: Alert and oriented times three. Pulse 72, blood pressure 107/65, respiration 20 , temperature 98 degrees, pulse ox 94% on room air. HEENT: Conjunctivae normal. Neck: No jugular venous distention. Cardiovascular: S1, S2 muffled. Respiratory: Breath sounds diminished in the bases. A few scattered rhonchi. No crackles. Abdomen is soft. Mild diffuse discomfort on palpation. No guarding. No rigidity. No mass palpable. Legs are no edema, no swelling. LABS: The AST is 82 and ALT is 130, alkaline phosphatase 195. amylase of 4345[place] [address]. ASSESSMENT: 1. Right upper quadrant abdominal pain with possible cholecystitis, cholelithiasis and choledocholithiasis, present on admission status post ERCP. 2. ERCP and biliary stent placement and sphincterotomy. 3. Post ERCP pancreatitis. 4. Increased WBC. 5. Increased AST, ALT, alkaline phosphatase and bilirubin, possibly secondary to choledocholithiasis. RECOMMENDATIONS AND DISCUSSION: Continue current medications, continue to monitor, symptomatic treatment. Monitor closely. Guarded prognosis. Further recommendations to follow. PEPPER / ELIASN: [id number] / MTDD
[2017-06-04] MEDS: SERTRALINE 50 MG TAB PO SCH (20:51)
[2017-06-05] MEDS: MORPHINE SULFATE 4 MG/0.8 ML SYRINGE (INJ) IVP PRN ×5 (03:25→20:46)
[2017-06-05 07:12] LABS: Basophils % (A) 0 %; Eosinophils # (A) 0.2 k/uL (0-0.7); Eosinophils % (A) 2 %; HCT 36.5 % (34.0-46.0); HGB 11.7 gm/dL (11.4-16.0); Lymphocytes # (A) 1.9 k/uL (1.0-4.8); Lymphocytes % (A) 17 %; MCH 26.3 pg (25.0-35.0); MCV 82.4 fL (80.0-100.0); Mean Platelet Volume 6.6; Monocytes # (A) 0.6 k/uL (0-1.0); Monocytes % (A) 5 %; Neutrophils # (A) 8.5 k/uL (1.3-7.7); Neutrophils % (A) 74 %; Platelet Count 386 k/uL (150-450); RBC 4.43 m/uL (3.80-5.40); RDW 14.3 % (11.5-15.5); WBC 11.4 k/uL (4.0-11.0)
[2017-06-05 07:35] LABS: ALT 85 U/L (9-52); AST 36 U/L (14-36); Albumin 3.5 g/dL (3.5-5.0); Alkaline Phosphatase 158 U/L (38-126); Anion Gap 12 mmol/L; Bilirubin, Delta 0.4 mg/dL (0.0-0.2); Blood Urea Nitrogen 4 mg/dL (7-17); Carbon Dioxide 28 mmol/L (22-30); Chloride 103 mmol/L (98-107); Glucose 68 mg/dL (74-99); Potassium 3.4 mmol/L (3.5-5.1); Sodium 143 mmol/L (137-145); Total Bilirubin 0.4 mg/dL (0.2-1.3); Total Protein 6.1 g/dL (6.3-8.2)
[2017-06-05] MEDS: PIPERACILLIN-TAZOBACTAM 3.375 GM in DEXTROSE/WATER 1 50ML.BAG IVPB SCH ×2 (07:41→16:04)
[2017-06-05 07:54] LABS: Amylase 1512 U/L (30-110)
[2017-06-05 07:55] LABS: Lipase 3601 U/L (23-300)
[2017-06-05] MEDS: NICOTINE 14MG/24HR PATCH TRANSDERM SCH (08:31)
[2017-06-05] MEDS: PANTOPRAZOLE 40 MG/10 ML VIAL IVP SCH (08:34)
[2017-06-05] MEDS: HEPARIN SODIUM,PORCINE 5,000 UNIT/ML 1 ML VIAL SQ SCH ×2 (08:34→20:45)
[2017-06-05] MEDS: SODIUM CHLORIDE 0.9% 1,000 ML IV SCH ×2 (10:53→20:48)
[2017-06-05] MEDS ORDERED: Potassium Replacement Protocol 1 EACH MISC MISCELLANE PRN (15:06)
[2017-06-05] MEDS: POTASSIUM CHLORIDE ER 20 MEQ TAB.ER PO SCH ×2 (16:39→18:04)
--- NOTE | 2017-06-05 16:40 | P.PN ---
Progress Note - Text Progress Note Date: 06/05/17 The patient feels better. She states her pain is improved. On exam her vital signs are stable. Her abdomen soft. Patient's amylase and lipase are improving. She'll have labs repeated in the morning. She may be considered for laparoscopic cholecystectomy if her labs improved.
--- NOTE | 2017-06-05 18:08 | PN ---
PROGRESS NOTE DATE OF SERVICE: 06/05/2017 This 21-year-old woman who was admitted with right upper quadrant abdominal pain had possible cholecystitis, choledocholithiasis. After ERCP, the patient had features of abdominal pain and acute pancreatitis, also. Surgery is following the patient closely. No chest pain. No palpitations. On exam, alert and oriented x3. Pulse 77, blood pressure 100/64, respiration 20, temperature 98.6, pulse ox 94% on room air. HEENT: Conjunctivae normal. NECK: No jugular venous distention. CARDIOVASCULAR SYSTEM: S1, S2 muffled. RESPIRATORY SYSTEM: Breath sounds diminished at the bases. A few scattered rhonchi. No crackles. ABDOMEN: Soft, non-tender. No guarding. No rigidity. Non-tender. No mass palpable. LYMPHATICS: No lymph node palpable in neck, axillae or groin. NERVOUS SYSTEM: No focal deficit. LABS: WBC 11.4. Amylase is 1512 and lipase is 361. LFTs continue to improve. ASSESSMENT: 1. Right upper quadrant abdominal pain with possible cholelithiasis, cholecystitis and choledocholithiasis, status post ERCP. 2. ERCP and biliary stent placement. 3. History of sphincterotomy. 4. Status post ERCP pancreatitis. 5. Increased white count. 6. Increased AST ALT, alkaline phosphatase and bilirubin secondary to choledocholithiasis. RECOMMENDATIONS AND DISCUSSION: I recommend to continue current medication, continue symptomatic treatment. Otherwise at this time I recommend monitoring the patient closely. Surgical evaluation. Guarded prognosis. Further recommendations to follow. MMODL / IJN: [id number] /
[2017-06-05] MEDS: SERTRALINE 50 MG TAB PO SCH (20:46)
[2017-06-06] MEDS: PIPERACILLIN-TAZOBACTAM 3.375 GM in DEXTROSE/WATER 1 50ML.BAG IVPB SCH ×3 (00:10→16:46)
[2017-06-06] MEDS: MORPHINE SULFATE 4 MG/0.8 ML SYRINGE (INJ) IVP PRN ×3 (01:10→10:14)
[2017-06-06] MEDS: SODIUM CHLORIDE 0.9% 1,000 ML IV SCH ×2 (05:36→15:08)
[2017-06-06 06:45] LABS: Basophils % (A) 0 %; Eosinophils # (A) 0.3 k/uL (0-0.7); Eosinophils % (A) 2 %; HCT 35.1 % (34.0-46.0); HGB 11.4 gm/dL (11.4-16.0); Lymphocytes # (A) 1.9 k/uL (1.0-4.8); Lymphocytes % (A) 17 %; MCH 26.3 pg (25.0-35.0); MCHC 32.3 g/dL (31.0-37.0); MCV 81.5 fL (80.0-100.0); Mean Platelet Volume 6.8; Monocytes # (A) 0.6 k/uL (0-1.0); Monocytes % (A) 5 %; Neutrophils # (A) 8.3 k/uL (1.3-7.7); Neutrophils % (A) 74 %; Platelet Count 383 k/uL (150-450); RBC 4.31 m/uL (3.80-5.40); RDW 14.5 % (11.5-15.5); WBC 11.2 k/uL (4.0-11.0)
[2017-06-06] MEDS: NICOTINE 14MG/24HR PATCH TRANSDERM SCH (06:55)
[2017-06-06 07:00] LABS: ALT 55 U/L (9-52); AST 18 U/L (14-36); Albumin 3.3 g/dL (3.5-5.0); Alkaline Phosphatase 136 U/L (38-126); Anion Gap 12 mmol/L; Blood Urea Nitrogen 3 mg/dL (7-17); Calcium 8.7 mg/dL (8.4-10.2); Carbon Dioxide 24 mmol/L (22-30); Chloride 104 mmol/L (98-107); Glucose 65 mg/dL (74-99); Lipase 583 U/L (23-300); Potassium 3.2 mmol/L (3.5-5.1); Sodium 140 mmol/L (137-145); Total Bilirubin 0.7 mg/dL (0.2-1.3); Total Protein 5.7 g/dL (6.3-8.2)
[2017-06-06 07:16] LABS: Amylase 450 U/L (30-110)
[2017-06-06] MEDS: PANTOPRAZOLE 40 MG/10 ML VIAL IVP SCH (07:47)
[2017-06-06] MEDS: HEPARIN SODIUM,PORCINE 5,000 UNIT/ML 1 ML VIAL SQ SCH ×2 (07:48→21:53)
[2017-06-06] MEDS: HYDROcodone/APAP 5-325MG 1 EACH TAB PO PRN ×2 (15:05→21:53)
--- NOTE | 2017-06-06 21:38 | PN ---
PROGRESS NOTE DATE OF SERVICE: 06/06/2009 This 21-year-old woman was admitted with right upper quadrant abdominal pain, also for cholelithiasis, cholecystitis and choledocholithiasis. The patient also had post ERCP pancreatitis. The patient is complaining of abdominal discomfort. Surgery is following the patient closely. EXAM: Alert and oriented x3. Pulse 81, blood pressure 107/72, respiration 18, temperature 97.8, pulse ox 94% on room air. HEENT: Conjunctivae normal. NECK: No jugular venous distention. CARDIOVASCULAR: S1, S2 muffled. RESPIRATORY: Breath sounds diminished in the bases. A few scattered rhonchi. No crackles. ABDOMEN: Soft. Mild diffuse discomfort to palpation. No guarding. No rigidity. No mass palpable. LEGS: No edema. No swelling. NERVOUS SYSTEM: Nonfocal. LABS: WBC is 11.2. Potassium is 3.2. Otherwise, AST, ALT is improving and amylase is 450 and lipase 8583, which is also improving. ASSESSMENT: 1. Right upper quadrant abdominal pain with possible cholelithiasis, cholecystitis and choledocholithiasis status post endoscopic retrograde cholangiopancreatography. 2. Status post endoscopic retrograde cholangiopancreatography and biliary stent placement. 3. History of sphincterotomy. 4. Post endoscopic retrograde cholangiopancreatography pancreatitis. 5. Increased WBC. 6. Increased AST ALT, alkaline phosphatase, and bilirubin secondary to choledocholithiasis. RECOMMENDATIONS AND DISCUSSION: Continue current medical management and symptomatic treatment. Otherwise I would also recommend continuing with empiric antibiotics. Otherwise I would supplement potassium and DVT prophylaxis. Incentive spirometry, pain management, symptomatic treatment. Follow closely. Surgery discussed with Dr. Black for possible laparoscopic cholecystectomy. Prognosis guarded. Further recommendations to follow. MMODL / IJN: [id number] /
[2017-06-06] MEDS: SERTRALINE 50 MG TAB PO SCH (21:54)
[2017-06-07] MEDS: PIPERACILLIN-TAZOBACTAM 3.375 GM in DEXTROSE/WATER 1 50ML.BAG IVPB SCH ×3 (00:32→17:46)
[2017-06-07] MEDS: SODIUM CHLORIDE 0.9% 1,000 ML IV SCH ×2 (02:13→11:12)
[2017-06-07] MEDS: HYDROcodone/APAP 5-325MG 1 EACH TAB PO PRN ×2 (05:10→19:27)
[2017-06-07 07:34] LABS: Basophils % (A) 0 %; Eosinophils # (A) 0.4 k/uL (0-0.7); Eosinophils % (A) 4 %; HCT 35.4 % (34.0-46.0); HGB 10.8 gm/dL (11.4-16.0); Hypochromasia Slight; Lymphocytes # (A) 1.5 k/uL (1.0-4.8); Lymphocytes % (A) 15 %; MCH 25.4 pg (25.0-35.0); MCHC 30.6 g/dL (31.0-37.0); Mean Platelet Volume 7.4; Monocytes # (A) 0.5 k/uL (0-1.0); Monocytes % (A) 5 %; Neutrophils # (A) 7.7 k/uL (1.3-7.7); Neutrophils % (A) 75 %; Platelet Count 352 k/uL (150-450); RBC 4.26 m/uL (3.80-5.40); RDW 14.7 % (11.5-15.5); WBC 10.3 k/uL (4.0-11.0)
[2017-06-07 07:51] LABS: Albumin 3.2 g/dL (3.5-5.0); Amylase 173 U/L (30-110); Anion Gap 13 mmol/L; Calcium 8.9 mg/dL (8.4-10.2); Carbon Dioxide 21 mmol/L (22-30); Chloride 105 mmol/L (98-107); Glucose 67 mg/dL (74-99); Lipase 218 U/L (23-300); Sodium 139 mmol/L (137-145); Total Bilirubin 0.7 mg/dL (0.2-1.3); Total Protein 5.9 g/dL (6.3-8.2)
[2017-06-07 07:58] LABS: ALT 41 U/L (9-52); Blood Urea Nitrogen 3 mg/dL (7-17); Potassium 3.8 mmol/L (3.5-5.1)
[2017-06-07 07:59] LABS: AST 25 U/L (14-36); Alkaline Phosphatase 119 U/L (38-126)
[2017-06-07] MEDS: PANTOPRAZOLE 40 MG/10 ML VIAL IVP SCH (08:32)
[2017-06-07] MEDS: HEPARIN SODIUM,PORCINE 5,000 UNIT/ML 1 ML VIAL SQ SCH ×2 (08:38→20:10)
--- NOTE | 2017-06-07 08:54 | P.PN ---
Progress Note - Text Progress Note Date: 06/06/17 the patient is resting comfortably in her bed. She states her pain has improved. She still has some epigastric pain On exam her vital signs are stable. Her abdomen is soft. The patient's liver functionsh test improved. The patient will be schedule for laparoscopic cholecystectomy in the a.m. I discussed the patient that she may require postoperative ERCP if she shows evidence of choledocholithiasis. At that point if she needs an ERCP we will have GI reevaluate her.
[2017-06-07] MEDS: 0.9% NACL WITH KCL 40 MEQ/L 1,000 ML IV SCH ×2 (11:15→11:16)
[2017-06-07] MEDS: NICOTINE 14MG/24HR PATCH TRANSDERM SCH (11:16)
[2017-06-07] MEDS ORDERED: IV FLUID CONTINUATION 1,000 ML IV ONE (13:37)
[2017-06-07] MEDS ORDERED: ONDANSETRON 4 MG/2 ML VIAL IVP ONE (13:48)
[2017-06-07] MEDS ORDERED: BUPIVACAINE (PF) 0.25% 30 ML VIAL SQ ONE ×2 (13:54→14:16)
--- NOTE | 2017-06-07 14:52 | P.OP ---
Date of Procedure: 06/07/17 Preoperative Diagnosis: Chronic cholecystitis Postoperative Diagnosis: Chronic cholecystitis Procedure(s) Performed: Laparoscopic cholecystectomy Anesthesia: BEATA Surgeon: Jose Manuel Black Estimated Blood Loss (ml): 5 Pathology: other (Gallbladder) Condition: stable Disposition: PACU Description of Procedure: The patient was placed on the operating table. The patient received a general endotracheal tube anesthesia. The patients abdomen was prepped and draped in the usual sterile fashion. Through an infraumbilical stab incision, the fascia of the anterior abdominal wall was grasped with a pair of Kochers and then the Veress needle was placed in the peritoneal cavity. Position of the Veress needle was confirmed with positive drop test. The abdomen was then insufflated. After adequate insufflation, the 10 mm trocar was placed in the peritoneal cavity. Following this the laparoscope was placed in the peritoneal cavity. The patient was placed in the head-up, right side up position and then a 5 mm trocar was placed in the right lateral and right subcostal position under direct visualization. A 8 mm trocar was placed in the epigastric position. The gallbladder appeared to be chronically inflamed. There was some ascites in the peritoneal cavity. The gallbladder wall was thickened. The gallbladder was grasped in the fundus and infundibulum. Traction on the gallbladder was placed in the lateral and the cephalad positions. The triangle of Calot was visualized.. The cystic duct was bluntly dissected until the union of the cystic duct and common bile duct was seen. The cystic duct was then divided and sealed with the Harmonic scissors. A PDS Endoloop was then placed throughout the cystic duct stump. The cystic artery divided and sealed with the Harmonic scissors. The gallbladder was then removed from the liver bed using Harmonic scissors. The gallbladder was then extracted through the epigastric port site. Operative field was checked for any bleeding spots and Harmonic scissors was used to coagulate the liver bed. The abdomen was irrigated. The trocars were removed. The skin was closed using interrupted 3-0 Vicryl suture. Dermabond dressing were applied. The patient tolerated the procedure well.
[2017-06-07] MEDS: MORPHINE SULFATE 4 MG/ML SYRINGE IV ONE ×2 (15:20→15:32)
--- NOTE | 2017-06-07 19:51 | PN ---
PROGRESS NOTE DATE OF SERVICE: 06/07/2017. This 21-year-old woman was admitted with right upper abdominal pain, also had cholelithiasis and patient is undergoing laparoscopic cholecystectomy by Dr. Black. No chest pain. No palpitations. No fever. EXAM: Alert and oriented x3. Pulse 75, blood pressure 117/65, respirations 16, temperature 98 degrees, pulse ox 99% on 8L. HEENT: Conjunctivae normal. NECK: No jugular venous distention. CARDIOVASCULAR: S1, S2 muffled. RESPIRATORY: Breath sounds diminished in the bases. A few scattered rhonchi. No crackles. ABDOMEN: Soft, nontender. No mass palpable. No guarding. No rigidity. LEGS: No edema. NERVOUS SYSTEM: Nonfocal. LABS: WBC 10.2, hemoglobin 10.8. Otherwise, LFTs improving. Amylase 218, which is normal. Lipase 173. ASSESSMENT: 1. Right upper quadrant abdominal pain with possible cholelithiasis and cholecystitis and choledocholithiasis, status post endoscopic retrograde cholangiopancreatography as well as biliary stenting. 2. History of sphincterotomy. 3. Status post endoscopic retrograde cholangiopancreatography pancreatitis. 4. Increased WBC. 5. Increased AST, ALT, alkaline phosphatase, possibly secondary to choledocholithiasis. RECOMMENDATIONS AND DISCUSSION: In this 21-year-old woman who presented with multiple complex medical issues, will monitor the patient closely. Continue the current medical management and continue symptomatic treatment. Otherwise at this time, I will recommend continuing with DVT prophylaxis and laparoscopic cholecystectomy per Surgery. Further recommendations to follow. MMODL / IJN: [id number] /
[2017-06-07] MEDS: SERTRALINE 50 MG TAB PO SCH (20:11)
[2017-06-08] MEDS: PIPERACILLIN-TAZOBACTAM 3.375 GM in DEXTROSE/WATER 1 50ML.BAG IVPB SCH ×2 (00:04→08:10)
[2017-06-08] MEDS: HYDROcodone/APAP 5-325MG 1 EACH TAB PO PRN (00:28)
[2017-06-08] MEDS: 0.9% NACL WITH KCL 40 MEQ/L 1,000 ML IV SCH (02:22)
[2017-06-08] MEDS: MORPHINE SULFATE 4 MG/0.8 ML SYRINGE (INJ) IVP PRN ×2 (04:40→12:15)
[2017-06-08 06:48] LABS: Basophils % (A) 0 %; Eosinophils # (A) 0.3 k/uL (0-0.7); Eosinophils % (A) 3 %; HCT 32.8 % (34.0-46.0); HGB 10.4 gm/dL (11.4-16.0); Lymphocytes # (A) 1.8 k/uL (1.0-4.8); Lymphocytes % (A) 18 %; MCH 25.9 pg (25.0-35.0); MCHC 31.8 g/dL (31.0-37.0); MCV 81.5 fL (80.0-100.0); Mean Platelet Volume 6.6; Monocytes # (A) 0.5 k/uL (0-1.0); Monocytes % (A) 5 %; Neutrophils # (A) 7.4 k/uL (1.3-7.7); Neutrophils % (A) 72 %; Platelet Count 420 k/uL (150-450); RBC 4.02 m/uL (3.80-5.40); RDW 14.3 % (11.5-15.5); WBC 10.2 k/uL (4.0-11.0)
[2017-06-08 06:58] LABS: ALT 39 U/L (9-52); AST 22 U/L (14-36); Alkaline Phosphatase 106 U/L (38-126); Amylase 83 U/L (30-110); Anion Gap 13 mmol/L; Blood Urea Nitrogen 2 mg/dL (7-17); Calcium 8.7 mg/dL (8.4-10.2); Carbon Dioxide 23 mmol/L (22-30); Chloride 106 mmol/L (98-107); Glucose 65 mg/dL (74-99); Lipase 124 U/L (23-300); Potassium 3.7 mmol/L (3.5-5.1); Sodium 142 mmol/L (137-145); Total Bilirubin 0.3 mg/dL (0.2-1.3); Total Protein 5.4 g/dL (6.3-8.2)
[2017-06-08] MEDS: HYDROcodone/APAP 10-325MG 1 EACH TAB PO PRN ×2 (08:06→14:14)
[2017-06-08] MEDS: HEPARIN SODIUM,PORCINE 5,000 UNIT/ML 1 ML VIAL SQ SCH (08:08)
[2017-06-08] MEDS: PANTOPRAZOLE 40 MG/10 ML VIAL IVP SCH (08:09)
[2017-06-08 09:05] VITALS: RESP 18
[2017-06-08 09:32] VITALS: BMI 52.8
[2017-06-08] MEDS: NICOTINE 14MG/24HR PATCH TRANSDERM SCH (10:08)
[2017-06-08 13:38] VITALS: BP 118/81; PULSE 72; TEMP 98
--- NOTE | 2017-06-08 17:15 | DS ---
DISCHARGE SUMMARY FINAL DIAGNOSES: 1. Right upper quadrant abdominal pain with possible choledocholithiasis and cholecystitis and choledocholithiasis status post ERCP and biliary stenting. 2. Status post laparoscopic cholecystectomy. 3. History of sphincterotomy and ERCP. 4. Post ERCP pancreatitis. 5. Increased WBC. 6. Increased AST, ALT, alkaline phosphatase secondary to choledocholithiasis. DISCHARGE DISPOSITION: The patient is being discharged in stable condition with guarded prognosis. HISTORY OF PRESENT ILLNESS: This 21-year-old woman with a past medical history of multiple medical problems , being followed by Dr. Jeffers, who was admitted with abdominal pain and features of choledocholithiasis, multiple other medical issues. Patient had ERCP and biliary stenting. Subsequently patient had post ERCP pancreatitis and once it is improved, Dr. Black performed laparoscopic cholecystectomy. Vital signs are stable. Cardiac system: S1, S2. Abdomen soft. Nervous system: No focal deficits. Dr. Black cleared the patient for discharge. DISCHARGE ADVICE AND MEDICATIONS: 1. Diet is cardiac diet. 2. Activity limited until followup. 3. Follow up with Dr. Enid Jeffers in 2-3 days. 4. Follow up with Dr. Black as advised. MEDICATIONS: 1. Colace 100 mg p.o. b.i.d. 2. [place] 7.5 q.4h p.r.n. 3. Advil 200 mg q.48h hours. 5. Zoloft 50 mg p.o. q.h.s. Once again the patient is being discharged in stable condition. Guarded prognosis. MMODL / IJN: [id number] / [facility] CENTERDuncan
== END 2017-06-08 14:32 | disposition home or self-care (01) | DRG 417 ==
LOC: EC 17:03 → 3SUR 21:18 → 6PED 06-02 09:16 → OBSVTOIN 06-03 07:54
PROVIDERS: ADMIT Hospitalist; ATTEND Hospitalist
PROC: 0F798DZ Dilation of Common Bile Duct with Intraluminal Device, Via Natural or Artificial Opening Endoscopic (ICD-10-PCS; principal; 2017-06-03 08:00)
PROC: 0FT44ZZ Resection of Gallbladder, Percutaneous Endoscopic Approach (ICD-10-PCS; 2017-06-07)
DX: K80.66 Calculus of gallbladder and bile duct with acute and chronic cholecystitis without obstruction (principal); K85.90 Acute pancreatitis without necrosis or infection, unspecified; E66.01 Morbid (severe) obesity due to excess calories; F17.200 Nicotine dependence, unspecified, uncomplicated; F43.10 Post-traumatic stress disorder, unspecified; F32.9 Major depressive disorder, single episode, unspecified; F41.9 Anxiety disorder, unspecified; Y84.8 Other medical procedures as the cause of abnormal reaction of the patient, or of later complication, without mention of misadventure at the time of the procedure; Z82.49 Family history of ischemic heart disease and other diseases of the circulatory system; Z83.79 Family history of other diseases of the digestive system; Z90.89 Acquired absence of other organs; Z79.899 Other long term (current) drug therapy; Z79.1 Long term (current) use of non-steroidal anti-inflammatories (NSAID)
CPT/HCPCS: 36415; 43262; 43274; 43277; 74018; 74330; 76705; 80053; 80076; 81001; 81025; 82150; 82248; 83690; 85025; 88304; 96361; 96374; 96375; 99285

== ENCOUNTER 2019-06-09 18:26 | Inpatient (IN) | payer OTHER ==
[2019-06-09] MEDS ORDERED: SODIUM CHLORIDE 0.9% 1,000 ML IV STA ×2 (19:00→21:10)
--- NOTE | 2019-06-09 19:18 | ED ---
General Adult HPI - General Chief complaint: Abdominal Pain Stated complaint: Abd Pain Time Seen by Provider: 06/09/19 18:44 Source: patient, RN notes reviewed Mode of arrival: ambulatory Limitations: no limitations - History of Present Illness Initial comments: 23-year-old female with a past medical history of cholecystectomy presents to the emergency department for a chief complaint of upper abdominal pain. Patient states this started this morning but worsened in the past few hours. States it radiates from her whole upper abdomen to her back. Patient states she did have one episode of diarrhea earlier today. She denies any vomiting does admit to mild nausea. She denies any lower abdominal pain. She denies dysuria.Patient has no other complaints at this time including shortness of breath, chest pain, headache, or visual changes. - Related Data Home Medications Medication Instructions Recorded Confirmed Ibuprofen [Advil] 400 mg PO Q8HR PRN 06/01/17 06/01/17 [place] 1 tab PO HS 06/01/17 06/01/17 Sertraline [Zoloft] 50 mg PO HS 06/01/17 06/01/17 Previous Rx's Medication Instructions Recorded Docusate [Colace] 100 mg PO BID #20 capsule 06/08/17 HYDROcodone/APAP 7.5-325MG [[place] 1 each PO Q4H PRN #30 tab 06/08/17 7.5] Allergies Allergy/AdvReac Type Severity Reaction Status Date / Time No Known Allergies Allergy Verified 06/09/19 18:30 Review of Systems ROS Statement: Those systems with pertinent positive or pertinent negative responses have been documented in the HPI. ROS Other: All systems not noted in ROS Statement are negative. Past Medical History Past Medical History: No Reported History History of Any Multi-Drug Resistant Organisms: None Reported Past Surgical History: Section, Cholecystectomy, Tonsillectomy Past Anesthesia/Blood Transfusion Reactions: No Reported Reaction Past Psychological History: Anxiety, Depression, PTSD Smoking Status: Current some day smoker Past Alcohol Use History: Occasional Past Drug Use History: Marijuana - Past Family History Mother Family Medical History: Hypertension Additional Family Medical History / Comment(s): Gall bladder surgery Sister(s) Additional Family Medical History / Comment(s): Gall bladder surgery Father History Unknown: Yes Son(s) Family Medical History: No Reported History General Exam Limitations: no limitations General appearance: alert, in no apparent distress Head exam: Present: atraumatic, normocephalic, normal inspection Eye exam: Present: normal appearance, PERRL, EOMI. Absent: scleral icterus, conjunctival injection, periorbital swelling ENT exam: Present: normal exam, mucous membranes moist Neck exam: Present: normal inspection, full ROM. Absent: tenderness, meningismus, lymphadenopathy Respiratory exam: Present: normal lung sounds bilaterally. Absent: respiratory distress, wheezes, rales, rhonchi, stridor Cardiovascular Exam: Present: regular rate, normal rhythm, normal heart sounds. Absent: systolic murmur, diastolic murmur, rubs, gallop, clicks GI/Abdominal exam: Present: soft, normal bowel sounds. Absent: distended, tenderness (no significant abdominal tenderness on exam), guarding, rebound, rigid Expanded GI/Abdominal exam: Absent: psoas sign, obturator sign, heel tap sign, Kauffman's sign, Rovsing's sign, tenderness at McBurney's Point Neurological exam: Present: alert Course Vital Signs 06/09/19 06/09/19 06/09/19 18:31 19:01 19:19 Temperature 99.2 F 100.8 F H Pulse Rate 102 H 104 H Respiratory 18 18 Rate Blood Pressure 130/68 110/56 O2 Sat by Pulse 100 99 Oximetry 06/09/19 20:21 Temperature 102.8 F H Pulse Rate 108 H Respiratory 18 Rate Blood Pressure 120/72 O2 Sat by Pulse 100 Oximetry Medical Decision Making - Medical Decision Making 23-year-old female with a past medical history of cholecystectomy 2 years ago presents for upper abdominal pain. This started this morning but worsened this afternoon. Minimal upper abdominal tenderness. Patient is febrile here in the emergency department. Patient does have leukocytosis with a left shift CMP does show transaminitis as well as elevated bilirubin of 2.2. Ultrasound of the right upper quadrant does show a dilated common bile duct measuring 1.2 cm which should normally be 1.0 cm and it post cholecystectomy patient. Discussed this case with Dr. Urbina who recommended IV antibiotics and consultation GI and surgery. Patient was started on Zosyn. Her ideal body weight is 52.2 kg and she was given 30 mL/kg normal saline. She will be kept nothing by mouth. - Lab Data Result diagrams: 06/09/19 19:14 06/09/19 19:14 Lab Results 06/09/19 06/09/19 06/09/19 Range/Units 18:47 18:47 19:14 WBC 14.2 H (3.8-10.6) k/uL RBC 4.92 (3.80-5.40) m/uL Hgb 14.0 (11.4-16.0) gm/dL Hct 42.9 (34.0-46.0) % MCV 87.2 (80.0-100.0) fL MCH 28.5 (25.0-35.0) pg MCHC 32.6 (31.0-37.0) g/dL RDW 12.7 (11.5-15.5) % Plt Count 330 (150-450) k/uL Neutrophils % 90 % Lymphocytes % 4 % Monocytes % 4 % Eosinophils % 1 % Basophils % 0 % Neutrophils # 12.9 H (1.3-7.7) k/uL Lymphocytes # 0.6 L (1.0-4.8) k/uL Monocytes # 0.5 (0-1.0) k/uL Eosinophils # 0.2 (0-0.7) k/uL Basophils # 0.0 (0-0.2) k/uL Sodium (137-145) mmol/L Potassium (3.5-5.1) mmol/L Chloride (98-107) mmol/L Carbon Dioxide (22-30) mmol/L Anion Gap mmol/L BUN (7-17) mg/dL Creatinine (0.52-1.04) mg/dL Est GFR (CKD-EPI)AfAm (>60 ml/min/1.73 sqM) Est GFR (CKD-EPI)NonAf (>60 ml/min/1.73 sqM) Glucose (74-99) mg/dL Plasma Lactic Acid Valentin (0.7-2.0) mmol/L Calcium (8.4-10.2) mg/dL Total Bilirubin (0.2-1.3) mg/dL AST (14-36) U/L ALT (4-34) U/L Alkaline Phosphatase (38-126) U/L Total Protein (6.3-8.2) g/dL Albumin (3.5-5.0) g/dL Amylase (30-110) U/L Lipase (23-300) U/L Urine Color Yellow Urine Appearance Cloudy H (Clear) Urine pH 8.0 (5.0-8.0) Ur Specific [place] 1.023 (1.001-1.035) Urine Protein Negative (Negative) Urine Glucose (UA) Negative (Negative) Urine Ketones 1+ H (Negative) Urine Blood Negative (Negative) Urine Nitrite Negative (Negative) Urine Bilirubin 1+ H (Negative) Urine Urobilinogen 4.0 (<2.0) mg/dL Ur Leukocyte Esterase Negative (Negative) Urine RBC 1 (0-5) /hpf Urine WBC 3 (0-5) /hpf Ur Squamous Epith Cells 13 H (0-4) /hpf Amorphous Sediment Few H (None) /hpf Urine Mucus Rare H (None) /hpf Urine HCG, Qual Not Detected (Not Detectd) Coronavirus (PCR) (Not Detectd) 06/09/19 06/09/19 06/09/19 Range/Units 19:14 19:14 19:14 WBC (3.8-10.6) k/uL RBC (3.80-5.40) m/uL Hgb (11.4-16.0) gm/dL Hct (34.0-46.0) % MCV (80.0-100.0) fL MCH (25.0-35.0) pg MCHC (31.0-37.0) g/dL RDW (11.5-15.5) % Plt Count (150-450) k/uL Neutrophils % % Lymphocytes % % Monocytes % % Eosinophils % % Basophils % % Neutrophils # (1.3-7.7) k/uL Lymphocytes # (1.0-4.8) k/uL Monocytes # (0-1.0) k/uL Eosinophils # (0-0.7) k/uL Basophils # (0-0.2) k/uL Sodium 136 L (137-145) mmol/L Potassium 3.5 (3.5-5.1) mmol/L Chloride 98 (98-107) mmol/L Carbon Dioxide 26 (22-30) mmol/L Anion Gap 12 mmol/L BUN 11 (7-17) mg/dL Creatinine 0.75 (0.52-1.04) mg/dL Est GFR (CKD-EPI)AfAm >90 (>60 ml/min/1.73 sqM) Est GFR (CKD-EPI)NonAf >90 (>60 ml/min/1.73 sqM) Glucose 116 H (74-99) mg/dL Plasma Lactic Acid Valentin 0.9 (0.7-2.0) mmol/L Calcium 9.9 (8.4-10.2) mg/dL Total Bilirubin 2.2 H (0.2-1.3) mg/dL AST 225 H (14-36) U/L ALT 198 H (4-34) U/L Alkaline Phosphatase 246 H (38-126) U/L Total Protein 7.8 (6.3-8.2) g/dL Albumin 3.2 L (3.5-5.0) g/dL Amylase 56 (30-110) U/L Lipase 48 (23-300) U/L Urine Color Urine Appearance (Clear) Urine pH (5.0-8.0) Ur Specific [place] (1.001-1.035) Urine Protein (Negative) Urine Glucose (UA) (Negative) Urine Ketones (Negative) Urine Blood (Negative) Urine Nitrite (Negative) Urine Bilirubin (Negative) Urine Urobilinogen (<2.0) mg/dL Ur Leukocyte Esterase (Negative) Urine RBC (0-5) /hpf Urine WBC (0-5) /hpf Ur Squamous Epith Cells (0-4) /hpf Amorphous Sediment (None) /hpf Urine Mucus (None) /hpf Urine HCG, Qual (Not Detectd) Coronavirus (PCR) Not Detected (Not Detectd) Disposition Clinical Impression: Transaminitis, Abdominal pain, Hyperbilirubinemia, Dilation of common bile duct Disposition: ADMITTED IP TO THIS HOSP Condition: Fair Is patient prescribed a controlled substance at d/c from ED?: No Referrals: Enid Jeffers MD [Primary Care Provider] - 1-2 days Time of Disposition: 21:12
[2019-06-09 19:41] LABS: Basophils % (A) 0 %; Eosinophils # (A) 0.2 k/uL (0-0.7); Eosinophils % (A) 1 %; HCT 42.9 % (34.0-46.0); Lymphocytes # (A) 0.6 k/uL (1.0-4.8); Lymphocytes % (A) 4 %; MCH 28.5 pg (25.0-35.0); MCHC 32.6 g/dL (31.0-37.0); MCV 87.2 fL (80.0-100.0); Mean Platelet Volume 7.7; Monocytes # (A) 0.5 k/uL (0-1.0); Monocytes % (A) 4 %; Neutrophils # (A) 12.9 k/uL (1.3-7.7); Neutrophils % (A) 90 %; Platelet Count 330 k/uL (150-450); RBC 4.92 m/uL (3.80-5.40); RDW 12.7 % (11.5-15.5); WBC 14.2 k/uL (3.8-10.6)
[2019-06-09 19:42] LABS: Amorphous Sediment,Urine Few /hpf; Appearance,Urine Cloudy (Clear); Bilirubin,Urine 1+ (Negative); Blood,Urine Negative (Negative); Color,Urine Yellow; Glucose,Urine (UA) Negative (Negative); Ketones,Urine 1+ (Negative); Leukocyte Esterase,Urine Negative (Negative); Mucus,Urine Rare /hpf; Nitrite,Urine Negative (Negative); Protein,Urine Negative (Negative); RBC,Urine 1 /hpf (0-5); Specific Gravity,Urine 1.023 (1.001-1.035); Squamous Epithelial Cell,Urine 13 /hpf (0-4); WBC,Urine 3 /hpf (0-5)
[2019-06-09 19:45] LABS: ALT 198 U/L (4-34); AST 225 U/L (14-36); African American GFR (CKD) >90 (>60 ml/min/1.73 sqM); Albumin 3.2 g/dL (3.5-5.0); Alkaline Phosphatase 246 U/L (38-126); Amylase 56 U/L (30-110); Anion Gap 12 mmol/L; Blood Urea Nitrogen 11 mg/dL (7-17); Calcium 9.9 mg/dL (8.4-10.2); Carbon Dioxide 26 mmol/L (22-30); Chloride 98 mmol/L (98-107); Glucose 116 mg/dL (74-99); Non-African American GFR(CKD) >90 (>60 ml/min/1.73 sqM); Potassium 3.5 mmol/L (3.5-5.1); Sodium 136 mmol/L (137-145); Total Bilirubin 2.2 mg/dL (0.2-1.3); Total Protein 7.8 g/dL (6.3-8.2)
[2019-06-09] MEDS ORDERED: KETOROLAC 30 MG/ML 1 ML VIAL IVP STA (19:50)
[2019-06-09] MEDS ORDERED: ACETAMINOPHEN TAB 325 MG TAB PO STA (19:50)
--- NOTE | 2019-06-09 20:42 | US ---
EXAMINATION TYPE: US abdomen limited DATE OF EXAM: 06/09/2019 COMPARISON: NONE CLINICAL HISTORY: RUQ pain, cholecystectomy. Abdominal pain and vomiting today. History of cholecyste ctomy and biliary stenting EXAM MEASUREMENTS: Liver Length: 18.1 cm Gallbladder Wall: Surgically absent CBD: 1.2 cm Right Kidney: 13.0 x 4.3 x 4.4 cm Pancreas: Tail obscured by overlying bowel gas Liver: Enlarged and heterogeneous Gallbladder: Surgically absent Evidence for sonographic Kauffman's sign: no CBD: dilated with probable stent visualized Right Kidney: no evidence of hydronephrosis IMPRESSION: 1. Hepatomegaly. 2. Dilated common bile duct measuring 1.2 cm. Normal 1.0 cm in a postcholecystectomy patient
[2019-06-09] MEDS ORDERED: PIPERACILLIN-TAZOBACTAM 3.375 GM in SODIUM CHLORIDE 0.9% 100 ML IVPB STA (21:05)
[2019-06-09] MEDS ORDERED: NALOXONE 0.4 MG/ML 1 ML VIAL IV PRN (21:07)
[2019-06-09] MEDS ORDERED: ACETAMINOPHEN TAB 325 MG TAB PO PRN (21:07)
[2019-06-09 21:50] LABS: C Reactive Protein 21.1 mg/L (<10.0); LDH 768 U/L (313-618)
[2019-06-09 21:53] LABS: HCG,Qualitative Serum Not Detected
[2019-06-09] MEDS: ONDANSETRON 4 MG/2 ML VIAL IVP PRN (22:10)
[2019-06-09] MEDS: HYDROmorphone 0.5 MG/0.5 ML SYRINGE IVP PRN (22:10)
[2019-06-09] MEDS: SODIUM CHLORIDE 0.9% 1,000 ML IV SCH (23:39)
[2019-06-10] MEDS: HYDROmorphone 0.5 MG/0.5 ML SYRINGE IVP PRN ×2 (03:09→22:22)
[2019-06-10 06:58] LABS: Basophils % (A) 0 %; Eosinophils # (A) 0.1 k/uL (0-0.7); Eosinophils % (A) 0 %; HCT 37.3 % (34.0-46.0); HGB 12.2 gm/dL (11.4-16.0); Lymphocytes # (A) 1.1 k/uL (1.0-4.8); Lymphocytes % (A) 8 %; MCH 28.7 pg (25.0-35.0); MCHC 32.8 g/dL (31.0-37.0); MCV 87.5 fL (80.0-100.0); Mean Platelet Volume 7.8; Monocytes # (A) 0.7 k/uL (0-1.0); Monocytes % (A) 5 %; Neutrophils # (A) 12.8 k/uL (1.3-7.7); Neutrophils % (A) 87 %; Platelet Count 297 k/uL (150-450); RBC 4.26 m/uL (3.80-5.40); RDW 12.9 % (11.5-15.5); WBC 14.8 k/uL (3.8-10.6)
[2019-06-10 07:08] LABS: ALT 141 U/L (4-34); AST 90 U/L (14-36); African American GFR (CKD) >90 (>60 ml/min/1.73 sqM); Albumin 3.4 g/dL (3.5-5.0); Alkaline Phosphatase 174 U/L (38-126); Anion Gap 7 mmol/L; Blood Urea Nitrogen 8 mg/dL (7-17); Calcium 8.8 mg/dL (8.4-10.2); Carbon Dioxide 25 mmol/L (22-30); Chloride 105 mmol/L (98-107); Glucose 90 mg/dL (74-99); Magnesium 1.8 mg/dL (1.6-2.3); Non-African American GFR(CKD) >90 (>60 ml/min/1.73 sqM); Potassium 3.7 mmol/L (3.5-5.1); Sodium 137 mmol/L (137-145); Total Bilirubin 4.5 mg/dL (0.2-1.3); Total Protein 6.1 g/dL (6.3-8.2)
[2019-06-10] MEDS: SODIUM CHLORIDE 0.9% 1,000 ML IV SCH ×3 (07:33→20:58)
[2019-06-10] MEDS ORDERED: PIPERACILLIN-TAZOBACTAM 3.375 GM in SODIUM CHLORIDE 0.9% 100 ML IVPB SCH (08:00)
--- NOTE | 2019-06-10 09:58 | P.GSCN ---
<Sabrina Anderson A - Last Filed: 06/10/19 09:50> History of Present Illness Consult date: 06/10/19 Reason for Consult: Possible choledocholithiasis, dilated common bile duct Requesting physician: Zan Santacruz History of present illness: CHIEF COMPLAINT: Abdominal pain HISTORY OF PRESENT ILLNESS: 23-year-old female with a history of cholecystectomy and biliary stent placement in 2018 who presented to the emergency room with a chief complaint of abdominal pain. Patient reports pain in the upper abdomen. She states the pain was similar to that was 2 years ago when she had her gallbladder removed so she decided to come to the emergency room for further evaluation. She reports intolerance to greasy foods at times. She is unable to verify if she had a biliary stent placed in the past and is unsure if it was removed. PAST MEDICAL HISTORY: See list. PAST SURGICAL HISTORY: See list. MEDICATIONS: See list. ALLERGIES: See list. SOCIAL HISTORY: No illicit drug use. REVIEW OF SYSTEMS: CONSTITUTIONAL: Denies fever or chills. HEENT: Denies blurred vision, vision changes, or eye pain. Denies hemoptysis ENDOCRINE: Denies heat or cold intolerance. CARDIOVASCULAR: Denies chest pain or pressure. RESPIRATORY: No shortness of breath. GASTROINTESTINAL: See HPI for pertinent findings NEURO: Denies history of seizures. PSYCH: No depression or suicidal ideation HEMATOLOGIC: Denies bleeding disorders. LYMPHATIC: The patient denies any lumps and bumps around the neck. GENITOURINARY: Denies any blood in urine or increased urinary frequency. MUSCULOSKELETAL: Denies myalgias. Denies joint swelling. Denies decreased range of motion beyond patients baseline. SKIN: Denies pruitis. Denies rash. PHYSICAL EXAM: VITAL SIGNS: Reviewed GENERAL: Well-developed in no acute distress. HEENT: No sclera icterus. Extraocular movements grossly intact. Moist buccal mucosa. Head is atraumatic, normocephalic. Hears conversational speech. No nasal drainage. NECK: Supple without lymphadenopathy. CHEST: Non-labored respirations and equal bilateral excursions. CARDIOVASCULAR: Regular rate with regular rhythm. Palpable 2+ radial pulses. ABDOMEN: Soft. Nondistended. Nontender MUSCULOSKELETAL: No clubbing or cyanosis. NEUROLOGIC: No focal or lateralizing signs. Cranial nerves II through XII grossly intact. PSYCH: Appropriate affect. Alert and oriented to person, place and time. SKIN: Well perfused. Good skin turgor. LABORATORY DATA: WBC 14.8. Hemoglobin 12.2. Platelet count 297. Bilirubin 4.5. AST 90. ALT 141. Alkaline phosphatase 174. IMAGING: Abdominal ultrasound: Hepatomegaly. Dilated common bile duct measuring 1.2 cm. Probable stent visualized. ASSESSMENT: 1. Abdominal pain 2. Hyperbilirubinemia 3. Transaminitis 4. History of cholecystectomy with biliary stent placement, 2018 PLAN: -NPO except for ice chips, until evaluated by GI service -Await input from GI. Anticipate ERCP -Monitor labs -No surgical intervention recommended Nurse practitioner note has been reviewed by physician. Signing provider agrees with the documented findings, assessment, and plan of care. Past Medical History Past Medical History: No Reported History History of Any Multi-Drug Resistant Organisms: None Reported Past Surgical History: Section, Cholecystectomy, Tonsillectomy Past Anesthesia/Blood Transfusion Reactions: No Reported Reaction Past Psychological History: Anxiety, Depression, PTSD Additional Psychological History / Comment(s): Marijuana helps with anxiety and depression. Did try Zoloft for a period of time, but did not agree with patient. Smoking Status: Former smoker Past Alcohol Use History: Occasional Past Drug Use History: Marijuana - Past Family History Mother Family Medical History: Hypertension Additional Family Medical History / Comment(s): Gall bladder surgery Sister(s) Additional Family Medical History / Comment(s): Gall bladder surgery Father History Unknown: Yes Son(s) Family Medical History: No Reported History Medications and Allergies Home Medications Medication Instructions Recorded Confirmed Type Zantrex 1 cap PO DAILY 06/09/19 06/09/19 History Allergies Allergy/AdvReac Type Severity Reaction Status Date / Time No Known Allergies Allergy Verified 06/09/19 21:18 Surgical - Exam Vital Signs Temp Pulse Resp BP Pulse Ox 99.2 F 102 H 18 130/68 100 06/09/19 18:31 06/09/19 18:31 06/09/19 18:31 06/09/19 18:31 06/09/19 18:31 Results - Labs 06/10/19 06:26 06/10/19 06:26 Abnormal Lab Results - Last 24 Hours (Table) 06/09/19 06/09/19 06/09/19 Range/Units 18:47 19:14 19:14 WBC 14.2 H (3.8-10.6) k/uL Neutrophils # 12.9 H (1.3-7.7) k/uL Lymphocytes # 0.6 L (1.0-4.8) k/uL Sodium 136 L (137-145) mmol/L Glucose 116 H (74-99) mg/dL Total Bilirubin 2.2 H (0.2-1.3) mg/dL AST 225 H (14-36) U/L ALT 198 H (4-34) U/L Alkaline Phosphatase 246 H (38-126) U/L Lactate Dehydrogenase (313-618) U/L C-Reactive Protein (<10.0) mg/L Total Protein (6.3-8.2) g/dL Albumin 3.2 L (3.5-5.0) g/dL Urine Appearance Cloudy H (Clear) Urine Ketones 1+ H (Negative) Urine Bilirubin 1+ H (Negative) Ur Squamous Epith Cells 13 H (0-4) /hpf Amorphous Sediment Few H (None) /hpf Urine Mucus Rare H (None) /hpf 06/09/19 06/10/19 06/10/19 Range/Units 19:14 06:26 06:26 WBC 14.8 H (3.8-10.6) k/uL Neutrophils # 12.8 H (1.3-7.7) k/uL Lymphocytes # (1.0-4.8) k/uL Sodium (137-145) mmol/L Glucose (74-99) mg/dL Total Bilirubin 4.5 H (0.2-1.3) mg/dL AST 90 H (14-36) U/L ALT 141 H (4-34) U/L Alkaline Phosphatase 174 H (38-126) U/L Lactate Dehydrogenase 768 H (313-618) U/L C-Reactive Protein 21.1 H (<10.0) mg/L Total Protein 6.1 L (6.3-8.2) g/dL Albumin 3.4 L (3.5-5.0) g/dL Urine Appearance (Clear) Urine Ketones (Negative) Urine Bilirubin (Negative) Ur Squamous Epith Cells (0-4) /hpf Amorphous Sediment (None) /hpf Urine Mucus (None) /hpf Diabetes panel 06/09/19 06/10/19 Range/Units 19:14 06:26 Sodium 136 L 137 (137-145) mmol/L Potassium 3.5 3.7 (3.5-5.1) mmol/L Chloride 98 105 (98-107) mmol/L Carbon Dioxide 26 25 (22-30) mmol/L BUN 11 8 (7-17) mg/dL Creatinine 0.75 0.67 (0.52-1.04) mg/dL Glucose 116 H 90 (74-99) mg/dL Calcium 9.9 8.8 (8.4-10.2) mg/dL AST 225 H 90 H (14-36) U/L ALT 198 H 141 H (4-34) U/L Alkaline Phosphatase 246 H 174 H (38-126) U/L Total Protein 7.8 6.1 L (6.3-8.2) g/dL Albumin 3.2 L 3.4 L (3.5-5.0) g/dL Calcium panel 06/09/19 06/10/19 Range/Units 19:14 06:26 Calcium 9.9 8.8 (8.4-10.2) mg/dL Albumin 3.2 L 3.4 L (3.5-5.0) g/dL Pituitary panel 06/09/19 06/10/19 Range/Units 19:14 06:26 Sodium 136 L 137 (137-145) mmol/L Potassium 3.5 3.7 (3.5-5.1) mmol/L Chloride 98 105 (98-107) mmol/L Carbon Dioxide 26 25 (22-30) mmol/L BUN 11 8 (7-17) mg/dL Creatinine 0.75 0.67 (0.52-1.04) mg/dL Glucose 116 H 90 (74-99) mg/dL Calcium 9.9 8.8 (8.4-10.2) mg/dL Adrenal panel 06/09/19 06/10/19 Range/Units 19:14 06:26 Sodium 136 L 137 (137-145) mmol/L Potassium 3.5 3.7 (3.5-5.1) mmol/L Chloride 98 105 (98-107) mmol/L Carbon Dioxide 26 25 (22-30) mmol/L BUN 11 8 (7-17) mg/dL Creatinine 0.75 0.67 (0.52-1.04) mg/dL Glucose 116 H 90 (74-99) mg/dL Calcium 9.9 8.8 (8.4-10.2) mg/dL Total Bilirubin 2.2 H 4.5 H (0.2-1.3) mg/dL AST 225 H 90 H (14-36) U/L ALT 198 H 141 H (4-34) U/L Alkaline Phosphatase 246 H 174 H (38-126) U/L Total Protein 7.8 6.1 L (6.3-8.2) g/dL Albumin 3.2 L 3.4 L (3.5-5.0) g/dL <Suri De León - Last Filed: 06/10/19 09:59> History of Present Illness History of present illness: Ultrasound of the liver independently reviewed demonstrated a dilated common bile duct. Patient does report possibility of having a stent placement 2 years ago for choledocholithiasis however no follow-up upon its removal. Patient reports pain is exactly the same as it was 2 years ago. Recommend evaluation by GI as above Surgical - Exam Vital Signs Temp Pulse Resp BP Pulse Ox 99.2 F 102 H 18 130/68 100 06/09/19 18:31 06/09/19 18:31 06/09/19 18:31 06/09/19 18:31 06/09/19 18:31 Results - Labs 06/10/19 06:26 06/10/19 06:26 Abnormal Lab Results - Last 24 Hours (Table) 06/09/19 06/09/19 06/09/19 Range/Units 18:47 19:14 19:14 WBC 14.2 H (3.8-10.6) k/uL Neutrophils # 12.9 H (1.3-7.7) k/uL Lymphocytes # 0.6 L (1.0-4.8) k/uL Sodium 136 L (137-145) mmol/L Glucose 116 H (74-99) mg/dL Total Bilirubin 2.2 H (0.2-1.3) mg/dL AST 225 H (14-36) U/L ALT 198 H (4-34) U/L Alkaline Phosphatase 246 H (38-126) U/L Lactate Dehydrogenase (313-618) U/L C-Reactive Protein (<10.0) mg/L Total Protein (6.3-8.2) g/dL Albumin 3.2 L (3.5-5.0) g/dL Urine Appearance Cloudy H (Clear) Urine Ketones 1+ H (Negative) Urine Bilirubin 1+ H (Negative) Ur Squamous Epith Cells 13 H (0-4) /hpf Amorphous Sediment Few H (None) /hpf Urine Mucus Rare H (None) /hpf 06/09/19 06/10/19 06/10/19 Range/Units 19:14 06:26 06:26 WBC 14.8 H (3.8-10.6) k/uL Neutrophils # 12.8 H (1.3-7.7) k/uL Lymphocytes # (1.0-4.8) k/uL Sodium (137-145) mmol/L Glucose (74-99) mg/dL Total Bilirubin 4.5 H (0.2-1.3) mg/dL AST 90 H (14-36) U/L ALT 141 H (4-34) U/L Alkaline Phosphatase 174 H (38-126) U/L Lactate Dehydrogenase 768 H (313-618) U/L C-Reactive Protein 21.1 H (<10.0) mg/L Total Protein 6.1 L (6.3-8.2) g/dL Albumin 3.4 L (3.5-5.0) g/dL Urine Appearance (Clear) Urine Ketones (Negative) Urine Bilirubin (Negative) Ur Squamous Epith Cells (0-4) /hpf Amorphous Sediment (None) /hpf Urine Mucus (None) /hpf Diabetes panel 06/09/19 06/10/19 Range/Units 19:14 06:26 Sodium 136 L 137 (137-145) mmol/L Potassium 3.5 3.7 (3.5-5.1) mmol/L Chloride 98 105 (98-107) mmol/L Carbon Dioxide 26 25 (22-30) mmol/L BUN 11 8 (7-17) mg/dL Creatinine 0.75 0.67 (0.52-1.04) mg/dL Glucose 116 H 90 (74-99) mg/dL Calcium 9.9 8.8 (8.4-10.2) mg/dL AST 225 H 90 H (14-36) U/L ALT 198 H 141 H (4-34) U/L Alkaline Phosphatase 246 H 174 H (38-126) U/L Total Protein 7.8 6.1 L (6.3-8.2) g/dL Albumin 3.2 L 3.4 L (3.5-5.0) g/dL Calcium panel 06/09/19 06/10/19 Range/Units 19:14 06:26 Calcium 9.9 8.8 (8.4-10.2) mg/dL Albumin 3.2 L 3.4 L (3.5-5.0) g/dL Pituitary panel 06/09/19 06/10/19 Range/Units 19:14 06:26 Sodium 136 L 137 (137-145) mmol/L Potassium 3.5 3.7 (3.5-5.1) mmol/L Chloride 98 105 (98-107) mmol/L Carbon Dioxide 26 25 (22-30) mmol/L BUN 11 8 (7-17) mg/dL Creatinine 0.75 0.67 (0.52-1.04) mg/dL Glucose 116 H 90 (74-99) mg/dL Calcium 9.9 8.8 (8.4-10.2) mg/dL Adrenal panel 06/09/19 06/10/19 Range/Units 19:14 06:26 Sodium 136 L 137 (137-145) mmol/L Potassium 3.5 3.7 (3.5-5.1) mmol/L Chloride 98 105 (98-107) mmol/L Carbon Dioxide 26 25 (22-30) mmol/L BUN 11 8 (7-17) mg/dL Creatinine 0.75 0.67 (0.52-1.04) mg/dL Glucose 116 H 90 (74-99) mg/dL Calcium 9.9 8.8 (8.4-10.2) mg/dL Total Bilirubin 2.2 H 4.5 H (0.2-1.3) mg/dL AST 225 H 90 H (14-36) U/L ALT 198 H 141 H (4-34) U/L Alkaline Phosphatase 246 H 174 H (38-126) U/L Total Protein 7.8 6.1 L (6.3-8.2) g/dL Albumin 3.2 L 3.4 L (3.5-5.0) g/dL
[2019-06-10 11:49] LABS: Ferritin 83.6 ng/mL (10.0-291.0)
--- NOTE | 2019-06-10 12:08 | P.HPIM ---
History of Present Illness Patient is a pleasant 21-year-old female came in with comments of right upper quadrant abdominal pain along with nausea. Patient is found to have critical test patient had fever chills at home patient had high-grade fever here. Esme clay had a cholecystectomy and had a biliary stent in 2018. Her abdominal pain sharp in nature and radiating to the back in the right upper quadrant had 1 episode of diarrhea denied any vomiting. Review of Systems REVIEW OF SYSTEMS: CONSTITUTIONAL: No fever, no malaise, no fatigue. HEENT: No recent visual problems or hearing problems. Denied any sore throat. CARDIOVASCULAR: No chest pain, orthopnea, PND, no palpitations, no syncope. PULMONARY: No shortness of breath, no cough, no hemoptysis. GASTROINTESTINAL: As mentioned in HPI NEUROLOGICAL: No headaches, no weakness, no numbness. HEMATOLOGICAL: Denies any bleeding or petechiae. GENITOURINARY: Denies any burning micturition, frequency, or urgency. MUSCULOSKELETAL/RHEUMATOLOGICAL: Denies any joint pain, swelling, or any muscle pain. ENDOCRINE: Denies any polyuria or polydipsia. The rest of the 14-point review of systems is negative. Past Medical History Past Medical History: No Reported History History of Any Multi-Drug Resistant Organisms: None Reported Past Surgical History: Section, Cholecystectomy, Tonsillectomy Past Anesthesia/Blood Transfusion Reactions: No Reported Reaction Past Psychological History: Anxiety, Depression, PTSD Additional Psychological History / Comment(s): Marijuana helps with anxiety and depression. Did try Zoloft for a period of time, but did not agree with patient. Smoking Status: Former smoker Past Alcohol Use History: Occasional Past Drug Use History: Marijuana - Past Family History Mother Family Medical History: Hypertension Additional Family Medical History / Comment(s): Gall bladder surgery Sister(s) Additional Family Medical History / Comment(s): Gall bladder surgery Father History Unknown: Yes Son(s) Family Medical History: No Reported History Medications and Allergies Home Medications Medication Instructions Recorded Confirmed Type Zantrex 1 cap PO DAILY 06/09/19 06/09/19 History Allergies Allergy/AdvReac Type Severity Reaction Status Date / Time No Known Allergies Allergy Verified 06/09/19 21:18 Physical Exam Vitals: Vital Signs Temp Pulse Pulse Resp BP BP Pulse Ox 06/10/19 08:20 16 06/10/19 07:00 98.8 F 83 16 95/54 95 06/10/19 02:40 98.9 F 84 102/66 96 06/09/19 22:14 100.5 F H 113 H 16 112/74 96 06/09/19 21:33 101.8 F H 98 18 113/68 99 06/09/19 20:21 102.8 F H 108 H 18 120/72 100 06/09/19 19:19 104 H 18 110/56 99 06/09/19 19:01 100.8 F H 06/09/19 18:31 99.2 F 102 H 18 130/68 100 Intake and Output 06/09/19 06/10/19 06/10/19 22:59 06:59 14:59 Other: # Voids 1 Weight 115.666 kg PHYSICAL EXAMINATION: GENERAL: The patient is alert and oriented x3, not in any acute distress. Obese HEENT: Pupils are round and equally reacting to light. EOMI. No scleral icterus. No conjunctival pallor. Normocephalic, atraumatic. No pharyngeal erythema. No thyromegaly. CARDIOVASCULAR: S1 and S2 present. No murmurs, rubs, or gallops. PULMONARY: Chest is clear to auscultation, no wheezing or crackles. ABDOMEN: Soft, nontender, nondistended, normoactive bowel sounds. No palpable organomegaly. MUSCULOSKELETAL: No joint swelling or deformity. EXTREMITIES: No cyanosis, clubbing, or pedal edema. NEUROLOGICAL: Gross neurological examination did not reveal any focal deficits. SKIN: No rashes. Results CBC & Chem 7: 06/10/19 06:26 06/10/19 06:26 Labs: Abnormal Lab Results - Last 24 Hours (Table) 06/09/19 06/09/19 06/09/19 Range/Units 18:47 19:14 19:14 WBC 14.2 H (3.8-10.6) k/uL Neutrophils # 12.9 H (1.3-7.7) k/uL Lymphocytes # 0.6 L (1.0-4.8) k/uL Sodium 136 L (137-145) mmol/L Glucose 116 H (74-99) mg/dL Total Bilirubin 2.2 H (0.2-1.3) mg/dL AST 225 H (14-36) U/L ALT 198 H (4-34) U/L Alkaline Phosphatase 246 H (38-126) U/L Lactate Dehydrogenase (313-618) U/L C-Reactive Protein (<10.0) mg/L Total Protein (6.3-8.2) g/dL Albumin 3.2 L (3.5-5.0) g/dL Urine Appearance Cloudy H (Clear) Urine Ketones 1+ H (Negative) Urine Bilirubin 1+ H (Negative) Ur Squamous Epith Cells 13 H (0-4) /hpf Amorphous Sediment Few H (None) /hpf Urine Mucus Rare H (None) /hpf 06/09/19 06/10/19 06/10/19 Range/Units 19:14 06:26 06:26 WBC 14.8 H (3.8-10.6) k/uL Neutrophils # 12.8 H (1.3-7.7) k/uL Lymphocytes # (1.0-4.8) k/uL Sodium (137-145) mmol/L Glucose (74-99) mg/dL Total Bilirubin 4.5 H (0.2-1.3) mg/dL AST 90 H (14-36) U/L ALT 141 H (4-34) U/L Alkaline Phosphatase 174 H (38-126) U/L Lactate Dehydrogenase 768 H (313-618) U/L C-Reactive Protein 21.1 H (<10.0) mg/L Total Protein 6.1 L (6.3-8.2) g/dL Albumin 3.4 L (3.5-5.0) g/dL Urine Appearance (Clear) Urine Ketones (Negative) Urine Bilirubin (Negative) Ur Squamous Epith Cells (0-4) /hpf Amorphous Sediment (None) /hpf Urine Mucus (None) /hpf Thrombosis Risk Factor Assmnt - Choose All That Apply Any of the Below Risk Factors Present?: No Assessment and Plan Plan: -Sepsis secondary to ascending cholangitis: Continue with Zosyn. Patient does have choledocholithiasis patient will undergo ERCP patient has a previous biliary stent. -Choledocholithiasis: Yes. ERCP tomorrow tomorrow -Direct bilirubinemia secondary to choledocholithiasis or obstructed biliary stent -Depression no acute distress presently patient occasionally uses marijuana for depression. -DVT prophylaxis early ambulation, GI prophylaxis Pepcid as patient is on Toradol for pain
[2019-06-10] MEDS ORDERED: MORPHINE SULFATE 2 MG/ML SYRINGE IV PRN (12:49)
[2019-06-10] MEDS ORDERED: DEXAMETHASONE SOD PHOSPHATE 10 MG/ML 1 ML VIAL IV ONE (12:49)
[2019-06-10] MEDS ORDERED: LIDOCAINE 1% (10MG/ML) FOR IV START INTRADERMA PRN (12:49)
[2019-06-10] MEDS ORDERED: SCOPOLAMINE 1.5MG/72HR PATCH TRANSDERM ONE (13:00)
[2019-06-10] MEDS: LACTATED RINGERS 1,000 ML IV SCH (13:39)
[2019-06-10] MEDS: KETOROLAC 30 MG/ML 1 ML VIAL IVP SCH ×2 (14:54→19:16)
[2019-06-10] MEDS ORDERED: VANCOMYCIN IV PER PHARMACY 1 EACH MISC MISCELLANE PRN (15:56)
--- NOTE | 2019-06-10 16:41 | CONS ---
CONSULTATION DATE OF SERVICE: 06/10/2019. REASON FOR CONSULTATION: Epigastric and right upper quadrant abdominal pain of 2 days' duration. HISTORY OF PRESENT ILLNESS: Patient is a 23-year-old pleasant white female with a history of cholecystectomy, admitted to the hospital with abdominal pain associated with nausea, vomiting that started yesterday evening. The pain continues to progressively get worse and started having fever, chills and hence came to the emergency room and subsequently admitted to the hospital for further evaluation. She was noted to have limited transaminases and was started on broad-spectrum antibiotics. Patient has prior history of cholecystectomy, approximately a year ago for a CBD stone. She also underwent an ERCP in May of [address] Kennedy with biliary sphincterotomy, but a CBD stone could not be extracted and hence a CBD stent was placed. It is unclear at this time if the patient had the CBD stone removed and stent subsequently removed but on review of the records, no documentation noted. Today, she is feeling better. Her abdominal pain has resolved. She did have a abdominal ultrasound done at the time of admission hospital yesterday that showed dilated common bile duct measuring 1.4 cm in diameter and slightly enlarged liver but no obvious CBD stone noted. PAST MEDICAL HISTORY: None. PAST SURGICAL HISTORY: Cholecystectomy followed by ERCP in the site of cholecystectomy and ERCP in May of 2017. ERCP revealed CBD stone for which she underwent a stent placement. SOCIAL HISTORY: No smoking or alcohol use. REVIEW OF SYSTEMS: CARDIOPULMONARY: No chest pain or shortness of breath. GENITOURINARY: No dysuria or hematuria. MUSCULOSKELETAL: Unremarkable. SKIN: Unremarkable. ENDOCRINE: Unremarkable. PSYCHIATRIC: Unremarkable. NEUROLOGY: Unremarkable. ENT/VISION: Unremarkable. CONSTITUTIONAL: No recent weight loss. No fever, chills, night sweats. FAMILY HISTORY: Mother had hypertension, sister had gallbladder surgery for gallstones. PHYSICAL EXAMINATION: She appears comfortable, in no apparent distress. VITAL SIGNS: Stable. T-max was 101.8, pulse 88 per minute and a blood pressure 122/86. HEENT: Examination unremarkable. Conjunctivae are pink. Sclerae nonicteric. Oral cavity no lesions. NECK: No JVD or lymph node enlargement. CHEST: Clear to auscultation. HEART: Regular rate and rhythm. ABDOMEN: Soft. Minimal tenderness in the epigastric area. Bowel sounds are positive. No organomegaly. EXTREMITIES: No pedal edema. SKIN: No rashes. NEUROLOGIC: Alert and oriented x3. No focal deficits. LABS: From yesterday WBC was 14.2 and today it is 14.8, hemoglobin is normal. Platelets are normal. Neutrophil count 12.8. Yesterday, T-bilirubin was 2.2 and today is 4.5. AST and ALT were 225 and 198 respectively. Alkaline phosphatase 246,. Today T-bilirubin is 4.5, AST and ALT are 90 and 141 and alkaline phosphatase is 173. COVID-19 is negative. IMPRESSION: This is a lady with a history of cholecystectomy for symptomatic gallstones who presents to the hospital with severe epigastric and right upper quadrant abdominal pain that started yesterday associated with fever, chills, or night sweats. She is noted to have elevated serum transaminases as well as bilirubin up to 4.2 g/dL consistent with possible CBD stones. Patient did have an ERCP prior to the gallbladder surgery last year by Dr. Kennedy and was noted to have a common bile stone that could not be extracted and CBD stent was placed. It is unclear at this point if the CBD stone was retrieved later on and the stent removed. Patient cannot give me any further details. On recent imaging study, no CBD stent identified. RECOMMENDATIONS: 1. Continue with broad-spectrum antibiotics. 2. Will proceed with an ERCP tomorrow, positive for CBD stone extraction. 3. Discussed with the patient risks, benefits, and complications of the procedure and agreeable to it. 4. Repeat labs in the morning and will follow with you closely. Thank you for this consultation. MMODL / IJN: [id number] /
[2019-06-10] MEDS: AMPICILLIN-SULBACTAM 3 GM in SODIUM CHLORIDE 0.9% 100 ML IVPB SCH (17:58)
[2019-06-10] MEDS: VANCOMYCIN 1,750 MG in SODIUM CHLORIDE 0.9% 500 ML 500 ML IVPB SCH (19:22)
[2019-06-10] MEDS: FAMOTIDINE 20 MG TAB PO SCH (20:58)
--- NOTE | 2019-06-10 23:27 | CONS ---
CONSULTATION DATE OF SERVICE: 06/10/2019 REASON FOR CONSULTATION: 1. Choledocholithiasis. 2. Bacteremia. HISTORY OF PRESENT ILLNESS: The patient is a 23-year-old female with a past medical history significant for gallstone and cholecystitis in this patient who is status post cholecystectomy about a year ago. The patient also has a history of ERCP in May of 2017 with biliary sphincterotomy, but CBD stone could not be extracted. CBD stent was placed, and it is not clear if that stent has been removed or not. Patient presented to [facility] ER yesterday with the chief complaint of right upper quadrant pain that started in the morning and progressively got worse as the day went by. The patient describes the pain to be sharp and throbbing, almost 10/10 in severity, and has been radiating across the abdominal area. The patient did have an episode of vomiting and nausea. No diarrhea, though. Denies having any chest pain, shortness of breath or cough or any urinary symptoms. On arrival in the ER, the patient did have a fever of 100.8 and subsequently spiked a fever of 102 degrees Fahrenheit. The patient had tachycardia with a heart rate of 113 and white count was elevated at 14.2. She also had elevated liver enzymes. Urine was negative. The patient had an abdominal ultrasound showing hepatomegaly, dilated CBD at 1.2 cm. The patient was started on Zosyn. Subsequently blood culture came back positive with Gram-positive cocci. That prompted this infectious disease consultation regarding management of antibiotic therapy. The patient has been evaluated by GI with a plan for ERCP tomorrow with a plan for extraction of the CBD stone. REVIEW OF SYSTEMS: Positive points have been mentioned in HPI. Rest of the systems are negative. PAST MEDICAL HISTORY: Cholecystitis, CBD stone, anxiety, depression, PTSD. PAST SURGICAL HISTORY: , cholecystectomy, tonsillectomy. SOCIAL HISTORY: Current everyday smoker. Occasionally drinks. Admits to marijuana use. FAMILY HISTORY: Mother with history of hypertension and history of gallbladder disease. ALLERGIES: NO KNOWN DRUG ALLERGIES. MEDICATIONS: The patient is currently on Tylenol, Pepcid, Dilaudid, Toradol, lactated Ringer, Narcan, Zofran and IV fluid. PHYSICAL EXAMINATION: Blood pressure is 99/68 with a pulse of 78, temperature 98.4. T-max is 102. She is 97% on room air. General description is a young female lying in bed in no distress. No tachypnea or accessory muscle of respiration use. HEENT examination shows no pallor or scleral icterus. Oral mucosa membrane is dry. No pharyngeal erythema or thrush. NECK: Trachea is central. No thyromegaly. LUNGS: Unlabored breathing. Clear to auscultation anteriorly. No wheeze or crackle. HEART: S1, S2. Regular rate and rhythm. No added sound. ABDOMEN: Soft. Mildly tender in right upper quadrant area. No guarding or rigidity. EXTREMITIES: No edema of the feet. SKIN EXAMINATION: No rash or mass palpable. Neurologically the patient is awake, alert, oriented x3. Mood and affect normal. LABS: Hemoglobin is 12.8, white count 14.8, BUN of 8, creatinine 0.67. Liver enzymes are elevated. Blood culture with Gram-positive cocci. DIAGNOSTIC IMPRESSION AND PLAN: Patient admitted to hospital with sepsis in this patient who did have a fever, tachycardia, elevated white count. Source is likely ascending cholangitis in this patient who has a history of CBD stone and CBD stent placement, now with evidence of Gram-positive bacteremia, likely enterococcus or related pathogen. PLAN: 1. Discontinue Zosyn. 2. Blood cultures will be repeated to document clearance of bacteremia. 3. We will start the patient on vancomycin, Pharmacy to dose, target of 15, and Unasyn 3 grams q.6 hours while waiting for the culture to finalize. 4. Will follow clinical condition and culture to further adjust medication if needed. Thank you for this consultation. Will follow this patient along with you. MMODL / IJN: [id number] /
[2019-06-11] MEDS: KETOROLAC 30 MG/ML 1 ML VIAL IVP SCH ×5 (00:25→22:38)
[2019-06-11] MEDS: AMPICILLIN-SULBACTAM 3 GM in SODIUM CHLORIDE 0.9% 100 ML IVPB SCH ×4 (00:30→17:33)
[2019-06-11] MEDS: SODIUM CHLORIDE 0.9% 1,000 ML IV SCH ×3 (05:04→21:24)
[2019-06-11] MEDS: VANCOMYCIN 1,750 MG in SODIUM CHLORIDE 0.9% 500 ML 500 ML IVPB SCH ×2 (05:51→17:34)
[2019-06-11 07:14] LABS: Basophils % (A) 0 %; Eosinophils # (A) 0.3 k/uL (0-0.7); Eosinophils % (A) 3 %; HCT 35.6 % (34.0-46.0); HGB 11.6 gm/dL (11.4-16.0); Lymphocytes # (A) 2.1 k/uL (1.0-4.8); Lymphocytes % (A) 23 %; MCH 29.1 pg (25.0-35.0); MCHC 32.6 g/dL (31.0-37.0); MCV 89.3 fL (80.0-100.0); Mean Platelet Volume 7.9; Monocytes # (A) 0.5 k/uL (0-1.0); Monocytes % (A) 6 %; Neutrophils % (A) 66 %; Platelet Count 290 k/uL (150-450); RBC 3.99 m/uL (3.80-5.40); RDW 12.9 % (11.5-15.5); WBC 9.1 k/uL (3.8-10.6)
[2019-06-11 07:28] LABS: ALT 106 U/L (4-34); AST 50 U/L (14-36); African American GFR (CKD) >90 (>60 ml/min/1.73 sqM); Albumin 3.4 g/dL (3.5-5.0); Alkaline Phosphatase 164 U/L (38-126); Anion Gap 4 mmol/L; Blood Urea Nitrogen 5 mg/dL (7-17); Calcium 8.9 mg/dL (8.4-10.2); Carbon Dioxide 27 mmol/L (22-30); Chloride 106 mmol/L (98-107); Glucose 78 mg/dL (74-99); Non-African American GFR(CKD) >90 (>60 ml/min/1.73 sqM); Potassium 3.6 mmol/L (3.5-5.1); Sodium 137 mmol/L (137-145); Total Bilirubin 2.5 mg/dL (0.2-1.3); Total Protein 6.1 g/dL (6.3-8.2)
[2019-06-11] MEDS: FAMOTIDINE 20 MG TAB PO SCH ×2 (07:57→21:24)
[2019-06-11] MEDS ORDERED: INDOMETHACIN 50MG SUPPOSITORY RECTAL STA (08:43)
[2019-06-11] MEDS ORDERED: PROPOFOL 10 MG/ML 20 ML VIAL IV ONE (10:33)
[2019-06-11] MEDS ORDERED: MIDAZOLAM 2 MG/2 ML VIAL ONE (10:33)
[2019-06-11] MEDS ORDERED: IOPAMIDOL-300 50ML BTL MISCELLANE ONE (10:50)
[2019-06-11] MEDS ORDERED: IV FLUID CONTINUATION 1,000 ML IV ONE (11:15)
--- NOTE | 2019-06-11 11:24 | P.PCN ---
Date of Procedure: 06/11/19 Procedure(s) Performed: Brief history: Patient is a 23 year-old pleasant lady scheduled for an ERCP as part of evaluation of abdominal pain, fever and elevated serum transaminases for the last 2 days' duration. She has gram-positive bacteremia and presently on antibiotics for ascending cholangitis. She has prior history of CBD stones for which she underwent ERCP by Dr. Kennedy in May 2017 with a biliary sphincterotomy and CBD stent placement as a CBD stone could not be extracted. Subsequently she did not follow up in office. Now presents with abdominal pain and elevated LFTs and jaundice. Procedure performed: ERCP with extension of the biliary sphincterotomy, attempted balloon stone extraction and CBD stent placement Preoperative diagnoses: Ascending cholangitis/elevated LFTs and possible CBD stone IV sedation per anesthesia: Procedure: After informed consent was obtained from the patient and after the risks benefits and complications including bleeding perforation and pancreatitis explained in detail the patient was brought into the endoscopy unit. The patient was placed in prone position and IV conscious sedation was administered by anesthesia under continuous monitoring. The Olympus side-viewing duodenoscope was then inserted into the mouth and esophagus intubated without any difficulty. The scope was gradually advanced into the stomach and duodenum. The major papilla was identified without any difficulty. There was evidence of previous prior biliary sphincterotomy noted. Initial cannulation resulted in a presentation of the common bile duct that appeared slightly dilated measuring 1.5 cm in diameter with 2 filling defects which measuring approximately 1 cm in diameter. However there was some stenosis of the ampullary orifice noted. At this time I proceeded with extending the catheter with a guidewire and a biliary sphincterotome was passed over the guidewire into the CBD. Biliary sphincterotomy was extended by another 2-3 mm and further extension was not possible as there was no more room to cut the sphincter. At this time the catheter was exchanged with 11.5 mm balloon which was advanced over the guidewire into the proximal CBD and gently inflated. It was gradually withdrawn but despite multiple attempts I was not able to extract the stone because of papillary stenosis. The bile was freely flowing through the ampullary orifice. At this time after attempting to withdraw the stone multiple times and being unsuccessful I decided to place a CBD stent. A 7-Georgian 5 cm pigtail stent was placed in the proximal CBD to ensure adequate biliary drainage. Pancreatic duct was intentionally not cannulated. He tolerated the procedure well. Impression: 1. Dilated common bile duct with prior biliary sphincterotomy/papillary stenosis and to CBD filling defects measuring 1 cm each, status post extension of the biliary sphincter rectum he, attempted CBD stone extraction but unsuccessful because of papillary stenosis and hence 7-Georgian 5 cm pigtail stent placement 2. Pancreatic duct intentionally not cannulated Recommendations: The findings of this examination were discussed with the patien. She'll be on a clear liquid diet today. Continue antibiotics read will start her on Actigall 300 mg twice daily and she'll be seen in office in 2 we eks. We will refer her to [facility] for a biliary dilation of the papillary stenosis and CBD stone extraction in the next 2-3 months.
--- NOTE | 2019-06-11 11:49 | FL ---
EXAMINATION TYPE: FL ERCP DATE OF EXAM: 06/11/2019 FLUOROSCOPY Fluoroscopy time of 1 minute 25 seconds was used during ERCP and stent placement. 1 image/s document /s the procedure.
[2019-06-11] MEDS: LACTATED RINGERS 1,000 ML IV SCH (12:48)
[2019-06-11] MEDS: HYDROmorphone 0.5 MG/0.5 ML SYRINGE IVP PRN ×3 (14:24→22:44)
--- NOTE | 2019-06-11 15:27 | P.PN ---
Subjective Progress Note Date: 06/11/19 Principal diagnosis: Patient is a pleasant 23-year-old female came in with complaints of right upper quadrant abdominal pain along with nausea. Patient is found to have critical t est patient had fever chills at home patient had high-grade fever here. Patient had a cholecystectomy and had a biliary stent in 2018. Her abdominal pain sharp in nature and radiating to the back in the right upper quadrant had 1 episode of diarrhea denied any vomiting. 06/11/2019 Patient is seen and evaluated and follow-up and awaiting to undergo an ERCP today. Patient has been nothing by mouth and states her abdominal pain is less severe than yesterday although continues to be present. No acute overnight issues. She denies any vomiting at this time. No reports of chest pain or palpitations. Objective - Vital Signs Vital signs: Vital Signs Temp 98.2 F 06/11/19 07:00 Pulse 97 06/11/19 07:00 Resp 18 06/11/19 07:00 BP 108/72 06/11/19 07:00 Pulse Ox 97 06/11/19 07:00 Intake & Output 06/10/19 06/11/19 06/11/19 18:59 06:59 18:59 Intake Total 20 300 Balance 20 300 Intake: IV 300 Oral 20 Other: Voiding Method Toilet # Voids 1 - Exam GENERAL: The patient is alert and oriented x3, not in any acute distress. Obese HEENT: Pupils are round and equally reacting to light. EOMI. No scleral icterus. No conjunctival pallor. Normocephalic, atraumatic. No pharyngeal erythema. No thyromegaly. CARDIOVASCULAR: S1 and S2 present. No murmurs, rubs, or gallops. PULMONARY: Chest is clear to auscultation, no wheezing or crackles. ABDOMEN: Soft, nontender, nondistended, normoactive bowel sounds. No palpable organomegaly. MUSCULOSKELETAL: No joint swelling or deformity. EXTREMITIES: No cyanosis, clubbing, or pedal edema. NEUROLOGICAL: Gross neurological examination did not reveal any focal deficits. SKIN: No rashes. - Labs CBC & Chem 7: 06/11/19 06:10 06/11/19 06:10 Labs: Abnormal Lab Results - Last 24 Hours (Table) 06/11/19 Range/Units 06:10 BUN 5 L (7-17) mg/dL Total Bilirubin 2.5 H (0.2-1.3) mg/dL AST 50 H (14-36) U/L ALT 106 H (4-34) U/L Alkaline Phosphatase 164 H (38-126) U/L Total Protein 6.1 L (6.3-8.2) g/dL Albumin 3.4 L (3.5-5.0) g/dL Microbiology - Last 24 Hours (Table) 06/09/19 19:14 Blood Culture Gram Stain - Preliminary Blood 06/09/19 19:14 Blood Culture - Final Blood Assessment and Plan Assessment: -Sepsis secondary to ascending cholangitis: Continue with Zosyn and vancomycin. Infectious disease following. Patient does have choledocholithiasis patient will undergo ERCP patient has a previous biliary stent. Patient is status post ERCP today showing dilated common bile duct with prior biliary sphincterotomy/papillary stenosis and CBD dilling defects measuring 170 m each, status post extension of the biliary sphincter rectum with attempted stone extraction but unsuccessful and patient underwent a pigtail stent placement due to papillary stenosis -Choledocholithiasis -Direct bilirubinemia secondary to choledocholithiasis or obstructed biliary stent, improving -Depression no acute distress presently patient occasionally uses marijuana for depression. -DVT prophylaxis early ambulation -GI prophylaxis Pepcid as patient is on Toradol for pain
[2019-06-11] MEDS: URSODIOL 300 MG CAP PO SCH (17:35)
[2019-06-11] MEDS: ONDANSETRON 4 MG/2 ML VIAL IVP PRN (21:24)
--- NOTE | 2019-06-11 23:28 | PN ---
PROGRESS NOTE DATE OF SERVICE: 06/11/2019 REASON FOR FOLLOWUP: Ascending cholangitis with bacteremia. INTERVAL HISTORY: The patient's clinical course complicated by development of positive blood culture with gram-positive cocci. The patient was taken to the OR this morning and the patient is status post ERCP with extension of biliary sphincterotomy and attempted balloon stone extraction and CBD stent placement. The patient has tolerated the procedure. Right upper quadrant abdominal pain is currently controlled. No nausea or vomiting. No chest pain, shortness of breath or cough. No diarrhea. PHYSICAL EXAMINATION: Blood pressure 109/71 with a pulse of 65, temperature 98.8. She is 98% on room air. General description is a middle-aged female lying in bed in no distress. RESPIRATORY SYSTEM: Unlabored breathing, clear to auscultation anteriorly. HEART: S1, S2. Regular rate and rhythm. ABDOMEN: Soft, no tenderness. LABS: Hemoglobin is 11.6, white count 9.1, creatinine 0.6. Blood culture with gram-positive cocci. pending. DIAGNOSTIC IMPRESSION AND PLAN: Patient admitted to the hospital with ascending cholangitis in this patient who did have evidence of gram-positive bacteremia. Blood culture has been repeated to document clearance of bacteremia. In the meantime, we will keep the patient on Unasyn and vancomycin and adjust antibiotic further as needed. Monitor clinical course closely. MMODL / IJN: [id number] /
[2019-06-12] MEDS: AMPICILLIN-SULBACTAM 3 GM in SODIUM CHLORIDE 0.9% 100 ML IVPB SCH ×5 (00:21→23:02)
[2019-06-12] MEDS: SODIUM CHLORIDE 0.9% 1,000 ML IV SCH ×3 (03:43→22:04)
[2019-06-12] MEDS: HYDROmorphone 0.5 MG/0.5 ML SYRINGE IVP PRN ×3 (06:04→20:55)
[2019-06-12] MEDS: VANCOMYCIN 1,750 MG in SODIUM CHLORIDE 0.9% 500 ML 500 ML IVPB SCH (06:05)
[2019-06-12 07:16] LABS: Basophils % (A) 0 %; Eosinophils # (A) 0.2 k/uL (0-0.7); Eosinophils % (A) 3 %; HCT 36.9 % (34.0-46.0); HGB 11.5 gm/dL (11.4-16.0); Hypochromasia Slight; Lymphocytes # (A) 1.9 k/uL (1.0-4.8); Lymphocytes % (A) 22 %; MCH 28.5 pg (25.0-35.0); MCHC 31.2 g/dL (31.0-37.0); MCV 91.3 fL (80.0-100.0); Monocytes # (A) 0.5 k/uL (0-1.0); Monocytes % (A) 6 %; Neutrophils # (A) 5.8 k/uL (1.3-7.7); Neutrophils % (A) 68 %; Platelet Count 293 k/uL (150-450); RBC 4.05 m/uL (3.80-5.40); WBC 8.6 k/uL (3.8-10.6)
[2019-06-12 07:26] LABS: ALT 94 U/L (4-34); AST 39 U/L (14-36); African American GFR (CKD) >90 (>60 ml/min/1.73 sqM); Albumin 3.4 g/dL (3.5-5.0); Alkaline Phosphatase 167 U/L (38-126); Anion Gap 11 mmol/L; Blood Urea Nitrogen 2 mg/dL (7-17); Calcium 8.8 mg/dL (8.4-10.2); Carbon Dioxide 21 mmol/L (22-30); Chloride 108 mmol/L (98-107); Glucose 76 mg/dL (74-99); Magnesium 1.8 mg/dL (1.6-2.3); Non-African American GFR(CKD) >90 (>60 ml/min/1.73 sqM); Potassium 3.4 mmol/L (3.5-5.1); Sodium 140 mmol/L (137-145); Total Bilirubin 1.2 mg/dL (0.2-1.3); Total Protein 6.1 g/dL (6.3-8.2)
[2019-06-12] MEDS: FAMOTIDINE 20 MG TAB PO SCH ×2 (08:16→20:55)
[2019-06-12] MEDS: URSODIOL 300 MG CAP PO SCH ×2 (08:16→17:21)
[2019-06-12] MEDS ORDERED: POTASSIUM CHLORIDE ER 20 MEQ TAB.ER PO STA (09:23)
[2019-06-12] MEDS: LACTATED RINGERS 1,000 ML IV SCH (13:00)
[2019-06-12] MEDS: KETOROLAC 30 MG/ML 1 ML VIAL IVP SCH (13:00)
--- NOTE | 2019-06-12 14:37 | P.PN ---
Subjective Progress Note Date: 06/12/19 Principal diagnosis: Patient is a pleasant 23-year-old female came in with complaints of right upper quadrant abdominal pain along with nausea. Patient is found to have critical t est patient had fever chills at home patient had high-grade fever here. Patient had a cholecystectomy and had a biliary stent in 2018. Her abdominal pain sharp in nature and radiating to the back in the right upper quadrant had 1 episode of diarrhea denied any vomiting. 06/11/2019 Patient is seen and evaluated and follow-up and awaiting to undergo an ERCP today. Patient has been nothing by mouth and states her abdominal pain is less severe than yesterday although continues to be present. No acute overnight issues. She denies any vomiting at this time. No reports of chest pain or palpitations. 06/12/2019 Patient is seen in follow-up today currently tolerating a regular diet. Patient continues to have some abdominal tenderness although has improved. 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 GI following closely. Infectious disease is following as well as patient was noted to have bacteremia and cultures from 06/09/2019 finalized showing alpha hemolytic Streptococcus. Repeat cultures from 06/10/19 preliminary showing no growth thus far. Repeat blood cultures ordered. Patient is currently on Unasyn and vancomycin and will continue at this time. Will await clearance of bacteremia to determine antibiotic coverage once discharged. Objective - Vital Signs Vital signs: Vital Signs Temp 98.3 F 06/12/19 07:00 Pulse 72 06/12/19 07:00 Resp 16 06/12/19 07:00 BP 104/70 06/12/19 07:00 Pulse Ox 95 06/12/19 07:00 Intake & Output 06/11/19 06/12/19 06/12/19 18:59 06:59 18:59 Intake Total 300 20 Balance 300 20 Intake: IV 300 Oral 20 Other: Voiding Method Toilet Toilet Toilet # Voids 2 1 - Exam GENERAL: The patient is alert and oriented x3, not in any acute distress. Obese HEENT: Pupils are round and equally reacting to light. EOMI. No scleral icterus. No conjunctival pallor. Normocephalic, atraumatic. No pharyngeal erythema. No thyromegaly. CARDIOVASCULAR: S1 and S2 present. No murmurs, rubs, or gallops. PULMONARY: Chest is clear to auscultation, no wheezing or crackles. ABDOMEN: Soft, nontender, nondistended, normoactive bowel sounds. No palpable organomegaly. MUSCULOSKELETAL: No joint swelling or deformity. EXTREMITIES: No cyanosis, clubbing, or pedal edema. NEUROLOGICAL: Gross neurological examination did not reveal any focal deficits. SKIN: No rashes. - Labs CBC & Chem 7: 06/12/19 06:42 06/12/19 06:42 Labs: Abnormal Lab Results - Last 24 Hours (Table) 06/12/19 Range/Units 06:42 Potassium 3.4 L (3.5-5.1) mmol/L Chloride 108 H (98-107) mmol/L Carbon Dioxide 21 L (22-30) mmol/L BUN 2 L (7-17) mg/dL AST 39 H (14-36) U/L ALT 94 H (4-34) U/L Alkaline Phosphatase 167 H (38-126) U/L Total Protein 6.1 L (6.3-8.2) g/dL Albumin 3.4 L (3.5-5.0) g/dL Microbiology - Last 24 Hours (Table) 06/10/19 16:04 Blood Culture - Preliminary Blood No Growth after 24 hours 06/09/19 19:14 Blood Culture Gram Stain - Preliminary Blood Assessment and Plan Assessment: -Sepsis secondary to ascending cholangitis: Continue with Zosyn and vancomycin. Infectious disease following. Patient does have choledocholithiasis patient underwent ERCP patient has a previous biliary stent. Patient is status post ERCP today showing dilated common bile duct with prior biliary sphincterotomy /papillary stenosis and CBD stones with attempted stone extraction but unsuccessful and patient underwent a pigtail stent placement due to papillary stenosis -Bacteremia; blood cultures from 06/09/2019 finalized showing Alpha hemolytic Streptococcus, patient remains on Unasyn and IV vancomycin. Infectious disease is following. Repeat blood cultures from 06/09 preliminary showing no growth thus far. Will await finalization for clearance of bacteremia -Choledocholithiasis -Direct bilirubinemia secondary to choledocholithiasis or obstructed biliary stent, improving -Depression no acute distress presently patient occasionally uses marijuana for depression. -DVT prophylaxis early ambulation -GI prophylaxis Pepcid as patient is on Toradol for pain
[2019-06-12] MEDS ORDERED: VANCOMYCIN TROUGH DUE 1 EACH MISC MISCELLANE ONE (16:30)
--- NOTE | 2019-06-12 17:21 | PN ---
PROGRESS NOTE DATE OF DICTATION: 06/12/2019 This patient is a 23-year-old pleasant white female admitted to the hospital with ascending cholangitis, right upper quadrant abdominal pain and fever. She is on broad- spectrum antibiotics for Gram-positive bacteremia. She was noted to have elevated LFTs. She underwent an ERCP yesterday that showed two stones in the common bile duct with papillary stenosis at the site of previous biliary sphincterotomy. She underwent extension of the biliary sphincterotomy, but despite multiple attempts I was unable to extract the stone. A CBD stent was placed. The patient is doing better today. She remains on antibiotics. She reports no abdominal pain. No nausea or vomiting. No fever, chills or night sweats. PHYSICAL EXAMINATION: Blood pressure is 110/74, pulse rate 73, temperature 98.3. HEENT examination unremarkable. Conjunctivae pink. Sclerae anicteric. Oral cavity no lesions. NECK: No JVD or lymph node enlargement. CHEST: Clear to auscultation. HEART: Regular rate and rhythm. ABDOMEN: Soft. Bowel sounds are positive. No organomegaly. Minimal tenderness in the epigastric area. EXTREMITIES: No pedal edema. SKIN: No rashes. NEUROLOGIC: Alert and oriented x3. No focal deficits. LABS: Labs from today show WBC 8.6, hemoglobin 11.5, platelets normal. Basic metabolic panel is within normal limits. ALT and AST are 39 and 94, respectively. T-bilirubin is down to 1.2 and alkaline phosphatase is 167. IMPRESSION: 1. Choledocholithiasis with ascending cholangitis, status post ERCP with attempted common bile duct extraction but unsuccessful, status post CBD stent placement. Patient doing well. Remains on antibiotics. 2. Ascending cholangitis, on broad-spectrum antibiotics. 3. Elevated liver function tests, gradually improving. RECOMMENDATIONS: 1. Continue with broad-spectrum antibiotics. 2. Repeat labs in the morning. 3. Advance to regular diet. 4. Patient was advised to follow up in the office in 2 weeks from now, and based on how she is doing, will refer her to [facility] on an outpatient basis for CBD stone removal. In the meantime she will continue on Actigall 300 mg twice daily. Thank you for this consultation. MMODL / IJN: [id number] /
[2019-06-13] MEDS: HYDROmorphone 0.5 MG/0.5 ML SYRINGE IVP PRN (00:43)
--- NOTE | 2019-06-13 02:09 | PN ---
PROGRESS NOTE DATE OF SERVICE: 06/12/2019 REASON FOR FOLLOW UP: Streptococcal bacteremia secondary to ascending cholangitis. INTERVAL HISTORY: The patient is currently afebrile. The patient is breathing comfortably. The patient denies having any chest pain or cough. No nausea, vomiting. Abdominal pain has improved and no diarrhea. PHYSICAL EXAMINATION: Blood pressure 118/75 with a pulse of 75. Temperature of 98. She is 99% on room air. General description is a young female lying in bed in no distress. Respiratory system: Unlabored breathing. Clear to auscultation anteriorly. Heart S1, S2. Regular rate and rhythm. Abdomen soft, no tenderness. LABS: Hemoglobin is 11.5, white count 8.6, BUN of 2, creatinine 0.59. Blood culture alpha hemolytic Streptococcus. Blood culture repeat has been negative. DIAGNOSTIC IMPRESSION AND PLAN: Patient with ascending cholangitis with alpha hemolytic Streptococcus bacteremia. Patient is covered with Unasyn. Vancomycin discontinued. To continue with IV Unasyn while inpatient and finish therapy with oral antibiotic on discharge. Continue supportive care. MMODL / IJN: [id number] /
[2019-06-13] MEDS: AMPICILLIN-SULBACTAM 3 GM in SODIUM CHLORIDE 0.9% 100 ML IVPB SCH ×2 (05:31→12:31)
[2019-06-13] MEDS: SODIUM CHLORIDE 0.9% 1,000 ML IV SCH ×2 (05:32→07:02)
[2019-06-13] MEDS: LACTATED RINGERS 1,000 ML IV SCH (07:02)
[2019-06-13 07:28] VITALS: BP 114/78; PULSE 73; RESP 16; TEMP 98.1
[2019-06-13] MEDS: FAMOTIDINE 20 MG TAB PO SCH (08:01)
[2019-06-13] MEDS: URSODIOL 300 MG CAP PO SCH (08:01)
[2019-06-13 08:08] LABS: Basophils % (A) 1 %; Eosinophils # (A) 0.3 k/uL (0-0.7); Eosinophils % (A) 3 %; HCT 37.7 % (34.0-46.0); HGB 12.2 gm/dL (11.4-16.0); Lymphocytes # (A) 2.3 k/uL (1.0-4.8); Lymphocytes % (A) 27 %; MCH 29.2 pg (25.0-35.0); MCHC 32.3 g/dL (31.0-37.0); MCV 90.5 fL (80.0-100.0); Mean Platelet Volume 7.9; Monocytes # (A) 0.4 k/uL (0-1.0); Monocytes % (A) 5 %; Neutrophils # (A) 5.3 k/uL (1.3-7.7); Neutrophils % (A) 63 %; Platelet Count 337 k/uL (150-450); RBC 4.16 m/uL (3.80-5.40); RDW 13.2 % (11.5-15.5); WBC 8.4 k/uL (3.8-10.6)
[2019-06-13 08:33] LABS: ALT 78 U/L (4-34); AST 30 U/L (14-36); African American GFR (CKD) >90 (>60 ml/min/1.73 sqM); Albumin 3.4 g/dL (3.5-5.0); Alkaline Phosphatase 159 U/L (38-126); Anion Gap 9 mmol/L; Blood Urea Nitrogen 4 mg/dL (7-17); Calcium 9.2 mg/dL (8.4-10.2); Carbon Dioxide 24 mmol/L (22-30); Chloride 107 mmol/L (98-107); Glucose 84 mg/dL (74-99); Non-African American GFR(CKD) >90 (>60 ml/min/1.73 sqM); Potassium 3.7 mmol/L (3.5-5.1); Sodium 140 mmol/L (137-145); Total Bilirubin 0.7 mg/dL (0.2-1.3); Total Protein 6.3 g/dL (6.3-8.2)
--- NOTE | 2019-06-13 15:18 | PN ---
PROGRESS NOTE DATE OF SERVICE: 06/13/2019 REASON FOR FOLLOWUP: Ascending cholangitis with streptococcus bacteremia. INTERVAL HISTORY: The patient is currently afebrile. The patient is breathing comfortably. The patient denies having any chest pain or shortness of breath or cough. No nausea, no vomiting. No abdominal pain or diarrhea. PHYSICAL EXAMINATION: Blood pressure 114/78 with a pulse of 73, temperature 98.1. She is 97% on room air. General description is a middle-aged female up in the bed in no distress. RESPIRATORY SYSTEM: Unlabored breathing. Clear to auscultation anteriorly. HEART: S1, S2. Regular rate and rhythm. ABDOMEN: Soft. No tenderness. LABS: Hemoglobin is 12.1, white count 8.4, BUN of 4, creatinine 0.63. DIAGNOSTIC IMPRESSION AND PLAN: Patient with ascending cholangitis with inflammatory streptococcus bacteremia. Patient is status post ERCP with overall clinical improvement. Finish therapy with oral Augmentin 875 b.i.d. for 2 weeks. Prescription has been sent to the pharmacy. Continue with supportive care. MMODL / IJN: [id number] /
--- NOTE | 2019-06-13 16:18 | PN ---
PROGRESS NOTE DATE OF DICTATION: 06/13/2019 This patient is a 23-year-old pleasant white female admitted to the hospital with choledocholithiasis and ascending cholangitis. She underwent an ERCP two days ago, and CBD stones could not be extracted, and hence a CBD stent was placed. She remains on Actigall 200 mg twice daily. She also had Gram-positive bacteremia and is on broad- spectrum antibiotics, doing much better. Still has some mild abdominal pain. PHYSICAL EXAMINATION: She appears comfortable. No apparent distress. Vital signs are stable. Blood pressure is 112/86, pulse rate 82 per minute and afebrile. HEENT examination unremarkable. Conjunctivae pink. Sclerae anicteric. Oral cavity no lesions. NECK: No JVD or lymph node enlargement. CHEST: Clear to auscultation. HEART: Regular rate and rhythm. ABDOMEN: Soft. Bowel sounds are positive. No organomegaly. EXTREMITIES: No pedal edema. SKIN: No rashes. NEUROLOGIC: Alert and oriented x3. No focal deficits. LABS: Labs from today show T-bilirubin is normal at 0.7. AST and ALT are 30 and 78, respectively.. Alkaline phosphatase is 159. CBC is within normal limits. IMPRESSION: 1. Ascending cholangitis with Gram-positive bacteremia with streptococcus species, on broad-spectrum antibiotics, doing much better. 2. Choledocholithiasis, status post endoscopic retrograde cholangiopancreatography with extension of biliary sphincterotomy for papillary stenosis and attempted common bile duct stone extraction but not successful, status post CBD stent placement two days ago. Patient doing well have almost normalized. RECOMMENDATIONS: 1. Continue antibiotics. 2. Continue Actigall 300 mg twice daily. 3. Patient can be discharged home today with outpatient followup in 2 weeks and will make appropriate arrangements for her to have a repeat ERCP in a tertiary institute for CBD stone removal. This was discussed with the patient. She is agreeable to it. Thank you for this consultation. MMODL / IJN: [id number] /
--- NOTE | 2019-06-14 09:08 | P.DS ---
Providers Date of admission: 06/10/19 12:29 Expected date of discharge: 06/13/19 Attending physician: Arden Dixon MD Consults: 06/09/19 21:04 Consult Physician Routine Consulting Provider: Haroldo Santos Consult Reason/Comments: poss choledocolithiasis Do you want consulting provider notified?: Yes 06/09/19 21:10 Consult Physician Urgent Consulting Provider: Kumar Allen Consult Reason/Comments: possible asceinding cholanigitis Do you want consulting provider notified?: Yes Primary care physician: Enid Jeffers [facility] Course: Final diagnosis -Sepsis secondary to ascending cholangitis -Status post CBD stent placement -Bacteremia -Choledocholithiasis -Direct bilirubinemia secondary to choledocholithiasis or obstructed biliary stent -Depression -DVT prophylaxis -GI prophylaxis Discharge disposition Patient is being discharged in a stable condition with guarded prognosis to home. She will follow-up with Dr. Jeffers in the outpatient setting upon di scharge. Patient also instructed to follow-up with GI Dr. Vides as well as cardiolog in the outpatient setting. Patient will continue on a short course of oral antibiotics in the form of Augmentin for the next 12 days. Total time taken is 35 minutes. History of present illness This is a 23-year-old female who came in and was admitted with right upper quadrant abdominal pain along with nausea and was being closely monitored. Patient was also found to have fevers. Patient was being followed by GI and underwent an ERCP with attempts of CBD stone removal that was unsuccessful and underwent CBD stent placement. She was also found to have bacteremia showing alpha hemolytic Streptococcus with repeat cultures being negative over the last 48 hours. Infectious disease was following. Patient will be continued on oral Augmentin twice daily for the next 12 days. She will need to follow-up with primary care provider along with GI in the outpatient setting and will be referred to Sidney Elias from her previous surgeries in the outpatient setting. Currently no reports of nausea or vomiting and patient is tolerating diet. Patient is having normal bowel movements with no reports of diarrhea. Patient is afebrile. No reports of chest pain, shortness of breath, or palpitations. Patient states she would really like to go home today. Patient will be continued on Patient will be continued on ursodiol 300 mg twice daily until follow-up. Patient will be discharged today. On exam vital signs are stable. Temp is 98.1F, pulse is 73, respirations are 16, blood pressure is 114/78 and oxygen saturation is 96% on room air. Cardio S1, S2 are present. Respiratory system shows there to auscultation. Abdomen is soft and nontender. Nervous system shows no focal deficits. Please refer to medication reconciliation sheet for a list of medications. Patient Condition at Discharge: Fair Plan - Discharge Summary Discharge Rx Participant: Yes New Discharge Prescriptions: New Amoxic-Pot Clav 875-125Mg [Augmentin 875-125] 1 tab PO Q12HR #24 tab Ursodiol [Actigall] 300 mg PO BID-W/MEALS 30 Days #60 cap Famotidine [Pepcid] 20 mg PO BID #30 tab Acetaminophen Tab [Tylenol] 650 mg PO Q6HR PRN tab PRN Reason: Mild Pain Or Fever > 100.5 Continue Zantrex 1 cap PO DAILY Discharge Medication List Zantrex 1 cap PO DAILY 06/09/19 [History] Acetaminophen Tab [Tylenol] 650 mg PO Q6HR PRN tab 06/13/19 [Rx] Amoxic-Pot Clav 875-125Mg [Augmentin 875-125] 1 tab PO Q12HR #24 tab 06/13/19 [Rx] Famotidine [Pepcid] 20 mg PO BID #30 tab 06/13/19 [Rx] Ursodiol [Actigall] 300 mg PO BID-W/MEALS 30 Days #60 cap 06/13/19 [Rx] Follow up Appointment(s)/Referral(s): Carmen Vides MD [STAFF PHYSICIAN] - 06/27/19 2:00 pm (Please arrive at 1:45 pm) Enid Jeffers MD [Primary Care Provider] - 1-2 days (office closed at time of discharge. Please call to make appointment) Patient Instructions/Handouts: Endoscopic Biliary Stent Placement (DC), ERCP (Endoscopic Retrograde Cholangiopancreatography) (DC) Activity/Diet/Wound Care/Special Instructions: Activity Limited until follow-up Follow-up with primary care provider Follow-up with GI in 2 weeks Continue taking antibiotics until finished Discharge Disposition: HOME SELF-CARE
== END 2019-06-13 13:42 | disposition home or self-care (01) | DRG 872 ==
LOC: EC 18:26 → 4SSUR 21:06 → OBSVTOIN 06-10 12:29
PROVIDERS: ADMIT Internal Medicine; ATTEND Internal Medicine
PROC: 0F798DZ Dilation of Common Bile Duct with Intraluminal Device, Via Natural or Artificial Opening Endoscopic (ICD-10-PCS; principal; 2019-06-11 09:15)
DX: A40.9 Streptococcal sepsis, unspecified (principal); K80.31 Calculus of bile duct with cholangitis, unspecified, with obstruction; Z68.42 Body mass index [BMI] 45.0-49.9, adult; E66.9 Obesity, unspecified; Z20.828 Contact with and (suspected) exposure to other viral communicable diseases; F43.10 Post-traumatic stress disorder, unspecified; F32.9 Major depressive disorder, single episode, unspecified; F41.9 Anxiety disorder, unspecified; F17.200 Nicotine dependence, unspecified, uncomplicated; Z79.899 Other long term (current) drug therapy; Z90.49 Acquired absence of other specified parts of digestive tract; Z98.890 Other specified postprocedural states; Z82.49 Family history of ischemic heart disease and other diseases of the circulatory system
CPT/HCPCS: 36415; 43262; 43274; 74330; 76705; 80053; 80202; 81001; 81025; 82150; 82728; 83605; 83615; 83690; 83735; 84703; 85025; 86140; 87040; 87077; 87186; 87635; 96361; 96374; 99285

== ENCOUNTER 2024-09-02 16:28 | Emergency (ER) | payer OTHER ==
[2024-09-02 16:54] VITALS: TEMP 98.5
--- NOTE | 2024-09-02 17:14 | ED ---
Abdominal Pain HPI - General Source: patient, RN notes reviewed Mode of arrival: ambulatory Limitations: no limitations - History of Present Illness MD Complaint: abdominal pain Onset/Timin -: days(s) Location: LUQ Radiation: none Migration to: no migration Severity scale (1-10): 7 Quality: stabbing, sharp Consistency: colicky Worsens With: movement <Yoni Pagan - Last Filed: 09/02/24 19:08> <Danika Cota - Last Filed: 09/02/24 20:50> - General Chief Complaint: Abdominal Pain Stated Complaint: Stomach pain/L side pain Time Seen by Provider: 09/02/24 16:42 - History of Present Illness Initial Comments: This is a 28-year-old female with history of cholecystectomy presenting for left upper quadrant abdominal pain (6.5/10) since last night. Patient states pain began worsening upon waking this morning and worsens with inhalation upon noting a sharp pain with inhalation. Patient notified her PCP who advised her to go to the ER due to concern for splenic infarction. Patient denies nausea/vomiting, diarrhea, constipation, hematochezia, melena urinary symptoms, vaginal bleeding/discharge. Denies OCP use, recent long distance travel, recent surgery. (Yoni Pagan) - Related Data Home Medications Medication Instructions Recorded Confirmed Zantrex 1 cap PO DAILY 06/09/19 06/09/19 Previous Rx's Medication Instructions Recorded Acetaminophen Tab [Tylenol] 650 mg PO Q6HR PRN tab 06/13/19 Amoxic-Pot Clav 875-125Mg 1 tab PO Q12HR #24 tab 06/13/19 [Augmentin 875-125] Famotidine [Pepcid] 20 mg PO BID #30 tab 06/13/19 ursodioL [Actigall] 300 mg PO BID-W/MEALS 30 Days #60 06/13/19 cap Allergies Allergy/AdvReac Type Severity Reaction Status Date / Time No Known Allergies Allergy Verified 06/09/19 21:18 Review of Systems ROS Other: All systems not noted in ROS Statement are negative. <Yoni Pagan - Last Filed: 09/02/24 19:08> ROS Other: All systems not noted in ROS Statement are negative. <Danika Cota - Last Filed: 07/21/25 20:50> ROS Statement: Those systems with pertinent positive or pertinent negative responses have been documented in the HPI. Past Medical History Past Medical History: No Reported History History of Any Multi-Drug Resistant Organisms: None Reported Past Surgical History: Section, Cholecystectomy, Tonsillectomy Past Anesthesia/Blood Transfusion Reactions: No Reported Reaction Past Psychological History: Anxiety, Depression, PTSD Smoking Status: Current every day smoker Past Alcohol Use History: Occasional Past Drug Use History: Marijuana - Past Family History Mother Family Medical History: Hypertension Additional Family Medical History / Comment(s): Gall bladder surgery Sister(s) Additional Family Medical History / Comment(s): Gall bladder surgery Father History Unknown: Yes Son(s) Family Medical History: No Reported History <Yoni Pagan - Last Filed: 09/02/24 19:08> General Exam Limitations: no limitations General appearance: alert, in no apparent distress Head exam: Present: atraumatic, normocephalic, normal inspection Eye exam: Present: normal appearance, PERRL, EOMI. Absent: scleral icterus, conjunctival injection, periorbital swelling ENT exam: Present: normal exam, mucous membranes moist Neck exam: Present: normal inspection. Absent: tenderness, meningismus, lymphadenopathy Respiratory exam: Present: normal lung sounds bilaterally. Absent: respiratory distress, wheezes, rales, rhonchi, stridor Cardiovascular Exam: Present: regular rate, normal rhythm, normal heart sounds. Absent: systolic murmur, diastolic murmur, rubs, gallop, clicks GI/Abdominal exam: Present: soft, tenderness (Positive LUQ TTP without guarding), diminished bowel sounds, hypoactive bowel sounds. Absent: distended, guarding, rebound, rigid Extremities exam: Present: normal inspection, full ROM, normal capillary refill. Absent: tenderness, pedal edema, joint swelling, calf tenderness Back exam: Present: normal inspection Neurological exam: Present: alert, oriented X3, CN II-XII intact Psychiatric exam: Present: normal affect, normal mood Skin exam: Present: warm, dry, intact, normal color. Absent: rash <Yoni Pagan - Lazaro Filed: 09/02/24 19:08> Course Vital Signs 09/02/24 09/02/24 09/02/24 16:30 16:49 18:05 Temperature 97.5 F L 98.5 F Pulse Rate 83 70 75 Respiratory 18 16 18 Rate Blood Pressure 142/91 83/53 85/63 O2 Sat by Pulse 98 96 98 Oximetry 09/02/24 20:21 Temperature Pulse Rate 86 Respiratory 17 Rate Blood Pressure 102/62 O2 Sat by Pulse 97 Oximetry Medical Decision Making - Lab Data Result diagrams: 09/02/24 17:36 09/02/24 17:36 <Yoni Pagan - Last Filed: 09/02/24 19:08> - Lab Data Result diagrams: 09/02/24 17:36 09/02/24 17:36 <Danika Cota - Last Filed: 09/02/24 20:50> - Medical Decision Making Was pt. sent in by a medical professional or institution ([facility], [employer]PER[employer]DER, urgent care, hospital, or group home...) When possible be specific @ -No Did you speak to anyone other than the patient for history (EMS, parent, family, police, friend...)? What history was obtained from this source @ -No Did you review nursing and triage notes (agree or disagree)? Why? @ -I reviewed and agree with nursing and triage notes Were old charts reviewed (outside hosp., previous admission, EMS record, old EKG, old radiological studies, urgent care reports/EKG's, group home records)? Report findings @ -No old charts were reviewed Differential Diagnosis (chest pain, altered mental status, abdominal pain women, abdominal pain men, vaginal bleeding, weakness, fever, dyspnea, syncope, headache, dizziness, GI bleed, back pain, seizure, CVA, palpatations, mental health, musculoskeletal)? @ -Differential Abdominal Pain Women: Appendicitis, Cholecystitis, diverticulosis, ischemic bowel, pancreatitis, hepatitis, UTI, gastroenteritis, AAA, incarcerated hernia, bowel obstruction, constipation, inflammatory bowel, hepatitis, peptic ulcer disease, splenic infarction, perforated viscus, vulvitis, ovarian torsion, PID, kidney stone, placenta abruption, this is not meant to be an all-inclusive list EKG interpreted by me (3pts min.). @ -Not done X-rays interpreted by me (1pt min.). @ -None done CT interpreted by me (1pt min.). @ -AP CT results pending U/S interpreted by me (1pt. min.). @ -None done What testing was considered but not performed or refused? (CT, X-rays, U/S, labs)? Why? @ -None What meds were considered but not given or refused? Why? @ -None Did you discuss the management of the patient with other professionals (professionals i.e. , PA, EXPERIMENTAL DISPLAY BUILDER, lab, RT, psych nurse, licensed clinical social worker, inspector outside steam distribution, teacher, logistics supply officer, manager case)? Give summary @ -No Was smoking cessation discussed for >3mins.? @ -No Was critical care preformed (if so, how long)? @ -No Were there social determinants of health that impacted care today? How? (Homel essness, low income, unemployed, alcoholism, drug addiction, transportation, low edu. Level, literacy, decrease access to med. care, long term, rehab)? @ -No Was there de-escalation of care discussed even if they declined (Discuss DNR or withdrawal of care, Hospice)? DNR status @ -No What co-morbidities impacted this encounter? (DM, HTN, Smoking, COPD, CAD, Cancer, CVA, ARF, Chemo, Hep., AIDS, mental health diagnosis, sleep apnea, morbid obesity)? @ -None Was patient admitted / discharged? Hospital course, mention meds given and route, prescriptions, significant lab abnormalities, going to OR and other pertinent info. @ -Patient initially provided IV normal saline and Toradol. Lab work notable for WBC 10.21 and ALT 54. Unremarkable D-dimer, lipase, kidney function, UA and urine hCG. AP CT results pending. Patient discussed and care passed to Danika Cota PA-C. ([facility]) - Lab Data Lab Results 09/02/24 09/02/24 09/02/24 Range/Units 17:36 17:36 17:36 WBC 10.21 H (4.50-10.00) 10*3/uL RBC 5.00 (4.10-5.20) 10*6/uL Hgb 14.1 (12.0-15.0) g/dL Hct 43.4 (37.2-46.3) % MCV 86.8 (80.0-97.0) fL MCH 28.2 (27.0-32.0) pg MCHC 32.5 (32.0-37.0) g/dL Plt Count 350 (140-440) 10*3/uL MPV 9.8 (9.5-12.2) fL Immature Gran % (Auto) 0.4 % Neutrophils % 67.6 % Lymphocytes % 23.3 % Monocytes % 6.8 % Eosinophils % 1.5 % Basophils % 0.4 % Immature Gran # 0.04 (0.00-0.04) 10*3/uL Neutrophils # 6.91 (1.80-7.70) 10*3/uL Lymphocytes # 2.38 (0.90-5.00) 10*3/uL Monocytes # 0.69 (0.20-1.00) 10*3/uL Eosinophils # 0.15 (0.04-0.35) 10*3/uL Basophils # 0.04 (0.00-0.10) 10*3/uL D-Dimer (<0.60) mg/L FEU Sodium 141 (137-145) mmol/L Potassium 4.3 (3.5-5.1) mmol/L Chloride 103 (98-107) mmol/L Carbon Dioxide 25 (22-30) mmol/L Anion Gap 13 mmol/L BUN 10 (7-17) mg/dL Creatinine 0.71 (0.52-1.04) mg/dL Est GFR (CKD-EPI)AfAm >90 (>60 ml/min/1.73 sqM) Est GFR (CKD-EPI)NonAf >90 (>60 ml/min/1.73 sqM) Glucose 99 (74-99) mg/dL Plasma Lactic Acid Valentin 1.5 (0.7-2.0) mmol/L Calcium 10.2 (8.4-10.2) mg/dL Total Bilirubin 0.5 (0.2-1.3) mg/dL AST 31 (14-36) U/L ALT 54 H (4-34) U/L Alkaline Phosphatase 106 (38-126) U/L Total Protein 7.8 (6.3-8.2) g/dL Albumin 4.8 (3.5-5.0) g/dL Lipase 55 (23-300) U/L Urine Color Urine Appearance (Clear) Urine pH (5.0-8.0) Ur Specific [place] (1.001-1.035) Urine Protein (Negative) Urine Glucose (UA) (Negative) Urine Ketones (Negative) Urine Blood (Negative) Urine Nitrite (Negative) Urine Bilirubin (Negative) Urine Urobilinogen (<2.0) mg/dL Ur Leukocyte Esterase (Negative) Urine HCG, Qual (Not Detectd) 09/02/24 09/02/24 09/02/24 Range/Units 18:12 18:16 18:16 WBC (4.50-10.00) 10*3/uL RBC (4.10-5.20) 10*6/uL Hgb (12.0-15.0) g/dL Hct (37.2-46.3) % MCV (80.0-97.0) fL MCH (27.0-32.0) pg MCHC (32.0-37.0) g/dL Plt Count (140-440) 10*3/uL MPV (9.5-12.2) fL Immature Gran % (Auto) % Neutrophils % % Lymphocytes % % Monocytes % % Eosinophils % % Basophils % % Immature Gran # (0.00-0.04) 10*3/uL Neutrophils # (1.80-7.70) 10*3/uL Lymphocytes # (0.90-5.00) 10*3/uL Monocytes # (0.20-1.00) 10*3/uL Eosinophils # (0.04-0.35) 10*3/uL Basophils # (0.00-0.10) 10*3/uL D-Dimer 0.19 (<0.60) mg/L FEU Sodium (137-145) mmol/L Potassium (3.5-5.1) mmol/L Chloride (98-107) mmol/L Carbon Dioxide (22-30) mmol/L Anion Gap mmol/L BUN (7-17) mg/dL Creatinine (0.52-1.04) mg/dL Est GFR (CKD-EPI)AfAm (>60 ml/min/1.73 sqM) Est GFR (CKD-EPI)NonAf (>60 ml/min/1.73 sqM) Glucose (74-99) mg/dL Plasma Lactic Acid Valentin (0.7-2.0) mmol/L Calcium (8.4-10.2) mg/dL Total Bilirubin (0.2-1.3) mg/dL AST (14-36) U/L ALT (4-34) U/L Alkaline Phosphatase (38-126) U/L Total Protein (6.3-8.2) g/dL Albumin (3.5-5.0) g/dL Lipase (23-300) U/L Urine Color Light Yellow Urine Appearance Clear (Clear) Urine pH 6.0 (5.0-8.0) Ur Specific [place] 1.014 (1.001-1.035) Urine Protein Negative (Negative) Urine Glucose (UA) Negative (Negative) Urine Ketones Negative (Negative) Urine Blood Negative (Negative) Urine Nitrite Negative (Negative) Urine Bilirubin Negative (Negative) Urine Urobilinogen <2.0 (<2.0) mg/dL Ur Leukocyte Esterase Negative (Negative) Urine HCG, Qual Not Detected (Not Detectd) Disposition <Yoni Pagan - Last Filed: 09/02/24 19:08> Is patient prescribed a controlled substance at d/c from ED?: No <Danika Cota - Last Filed: 09/02/24 20:50> Clinical Impression: Abdominal pain Disposition: HOME SELF-CARE Condition: Stable Instructions (If sedation given, give patient instructions): Acute Abdominal Pain (ED) Additional Instructions: Please follow-up with your doctor. Return to the emergency department for new or worsening symptoms. Referrals: Yakov Cristina MD [Primary Care Provider] - 1-2 days
[2024-09-02] MEDS: SODIUM CHLORIDE 0.9% 1,000 ML IV STA (17:28)
[2024-09-02] MEDS: KETOROLAC 15 MG/ML 1 ML VIAL IVP STA (17:30)
[2024-09-02 18:19] LABS: Basophils # (A) 0.04 10*3/uL (0.00-0.10); Basophils % (A) 0.4 %; Eosinophils # (A) 0.15 10*3/uL (0.04-0.35); Eosinophils % (A) 1.5 %; HCT 43.4 % (37.2-46.3); HGB 14.1 g/dL (12.0-15.0); Lymphocytes # (A) 2.38 10*3/uL (0.90-5.00); Lymphocytes % (A) 23.3 %; MCH 28.2 pg (27.0-32.0); MCHC 32.5 g/dL (32.0-37.0); MCV 86.8 fL (80.0-97.0); Monocytes # (A) 0.69 10*3/uL (0.20-1.00); Monocytes % (A) 6.8 %; Neutrophils # (A) 6.91 10*3/uL (1.80-7.70); Neutrophils % (A) 67.6 %; Platelet Count 350 10*3/uL (140-440); RBC 5.00 10*6/uL (4.10-5.20); RDW 12.5 % (11.5-14.5); WBC 10.21 10*3/uL (4.50-10.00)
[2024-09-02 18:21] LABS: ALT 54 U/L (4-34); AST 31 U/L (14-36); African American GFR (CKD) >90 (>60 ml/min/1.73 sqM); Albumin 4.8 g/dL (3.5-5.0); Alkaline Phosphatase 106 U/L (38-126); Anion Gap 13 mmol/L; Blood Urea Nitrogen 10 mg/dL (7-17); Calcium 10.2 mg/dL (8.4-10.2); Carbon Dioxide 25 mmol/L (22-30); Chloride 103 mmol/L (98-107); Glucose 99 mg/dL (74-99); Lipase 55 U/L (23-300); Non-African American GFR(CKD) >90 (>60 ml/min/1.73 sqM); Potassium 4.3 mmol/L (3.5-5.1); Sodium 141 mmol/L (137-145); Total Protein 7.8 g/dL (6.3-8.2)
[2024-09-02 18:31] LABS: Bilirubin,Urine Negative (Negative); Blood,Urine Negative (Negative); Color,Urine Light Yellow; Glucose,Urine (UA) Negative (Negative); Ketones,Urine Negative (Negative); Leukocyte Esterase,Urine Negative (Negative); Nitrite,Urine Negative (Negative); PH, Urine 6.0 (5.0-8.0); Protein,Urine Negative (Negative); Specific Gravity,Urine 1.014 (1.001-1.035); Urobilinogen,Urine <2.0 mg/dL (<2.0)
--- NOTE | 2024-09-02 19:35 | CT ---
EXAMINATION TYPE: CT abdomen pelvis w con CT DLP: 2722.1 mGycm, Automated exposure control for dose reduction was used. DATE OF EXAM: 09/02/2024 7:27 PM COMPARISON: Abdominal ultrasound 06/09/2019 CLINICAL INDICATION:Female, 28 years old with history of LUQ pain; Pt c/o lower left abdominal pain TECHNIQUE: Standard CT of the abdomen and pelvis following the administration of 100 cc of Isovue 3 00 IV contrast material. Coronal and sagittal reformats were performed. FINDINGS: LOWER CHEST: Unremarkable ABDOMEN LIVER: No focal lesion. Mildly enlarged measuring 19.8 cm in CC dimension. GALLBLADDER AND BILE DUCTS: The gallbladder is surgically absent. No significant biliary ductal dilat ation. PANCREAS: Unremarkable. SPLEEN: Unremarkable. ADRENAL GLANDS: Unremarkable. KIDNEYS AND URETERS: No evidence of hydronephrosis or renal calculus. The kidneys enhance symmetrical ly. Contrast is demonstrated within both collecting systems and proximal ureters on the delayed phase . No ureteral calculus or hydroureter identified. PELVIS BLADDER: Unremarkable REPRODUCTIVE: Unremarkable. ABDOMEN & PELVIS STOMACH AND BOWEL: Stomach and duodenum are unremarkable. The appendix is within normal limits. No fo brooke bowel wall thickening or surrounding inflammatory changes identified. No evidence of bowel obstru ction. PERITONEUM: No evidence of pneumoperitoneum or free fluid. VASCULATURE: No evidence of aortic aneurysm. MUSCULOSKELETAL: No acute osseous abnormalities LYMPH NODES: No evidence for lymphadenopathy. SOFT TISSUE/ABDOMINAL WALL: Unremarkable IMPRESSION: 1. No CT evidence for acute abdominal/pelvic process. 2. Mild hepatomegaly. [facility], , 09/02/2024 7:33 PM
[2024-09-02 20:23] VITALS: BP 102/62; PULSE 86; RESP 17
== END 2024-09-02 21:07 | disposition home or self-care (01) ==
LOC: SUPCPDRO 16:28 → EC 16:28
DX: R10.12 Left upper quadrant pain (principal); F17.200 Nicotine dependence, unspecified, uncomplicated
CPT/HCPCS: 36415; 85379; 80053; 83605; 83690; 85025; 81003; 81025; 74177; 99284; 96374; 96361; J1885